=== PATIENT | male | born 1955 | race Caucasian/White ===

== ENCOUNTER 2017-09-30 10:03 | Inpatient (IN) | payer OTHER ==
[2017-09-30] MEDS ORDERED: Lidocaine 2% VISCOUS* 15 ML UDC ONE (10:50)
[2017-09-30] MEDS ORDERED: Naloxone* 0.4 MG/ML 1 ML VIAL ONE (10:50)
[2017-09-30] MEDS ORDERED: Flumazenil* 0.1 MG/ML 5 ML MDV ONE (10:50)
[2017-09-30] MEDS ORDERED: fentaNYL* 50 MCG/ML 2 ML VIAL (100 MCG VIAL) ONE (10:50)
[2017-09-30] MEDS ORDERED: Midazolam* 1 MG/ML 10 ML VIAL (10 MG) ONE (10:50)
[2017-09-30] MEDS ORDERED: Acetaminophen TAB* 325 MG PO PRN (14:35)
[2017-09-30] MEDS ORDERED: Nitroglycerin TAB 0.4 MG* 0.4 MG TAB SL PRN (14:37)
[2017-09-30] MEDS: Esmolol 10 MG/ML IVPREMIX* 2,500 MG/250 ML BAG IVPB SCH ×5 (15:46→22:53)
[2017-09-30] MEDS ORDERED: Metoprolol Tartrate TAB* 100 MG TAB PO ONE (16:19)
--- NOTE | 2017-09-30 17:11 | TEE ---
Patient: DANYEL TOWNSEND [facility] Rec#: [id number] : 1955 Date: 09/30/2017 Age: 62y Height: 182.88 cm / 72.0 in Weight: 108.86 kg / 239.9 lbs Sex: M BSA: 2.3 Room#: OP Type: Outpatient Referring: Dez Jason MD Performing: Dez Jason MD Reading: Dez Jason MD Log Washer: Britney AdamsMARISELA Nurse: Delfino Monterroso RN Transesophageal Echocardiogram Indication: A-flutter, CAD BP: 140/110 HR: 139 Rhythm: A-Flutter Findings History: SVT, CAD s/p CABG, a-fib, ischemic heart disease, HTN, MARISOL, CHF, former smoker. Technical Comments: The study quality is good. Left Ventricle: The left ventricular chamber size is normal. Severe global hypokinesis of the left ventricle is observed. There is severely decreased left ventricular systolic function. The estimated ejection fraction is 20-25%. The assessment of diastolic function is non-diagnostic. Left Atrium: The left atrium is moderately dilated. Spontaneous echo contrast is present in the left atrium appendage. The left atrial appendage velocity is mildly reduced. A thrombus is visualized in the left atrial appendage. Right Ventricle: The right ventricular cavity size is normal. The right ventricular global systolic function is mildly to moderately reduced. Right Atrium: The right atrium is mildly dilated. Interatrial septum appears intact without evidence of shunting. The bubble study is negative. A patent foramen ovale is not demonstrated with color Doppler and agitated contrast. Aortic Valve: The aortic valve is trileaflet. The aortic valve leaflets are mildly thickened. There is aortic annular calcification. There is a trace of aortic regurgitation. There is no evidence of aortic stenosis. Mitral Valve: The mitral valve leaflets are mildly thickened. There is a trace of mitral regurgitation. There is no evidence of mitral stenosis. Tricuspid Valve: The tricuspid valve leaflets are normal. There is trace to mild tricuspid regurgitation. There is no tricuspid stenosis. Pulmonic Valve: The pulmonic valve appears normal. There is no evidence of pulmonic regurgitation. There is no pulmonic stenosis. Pericardium: There is no significant pericardial effusion. Aorta: There is mild dilatation of the ascending aorta. There is moderate dilatation of the aortic root. There is plaque visualized in the transverse aorta. There is minimal atherosclerotic plaque in the visualized segments of the aorta. Pulmonary Artery: The main pulmonary artery appears normal. Venous: The bicaval view was obtained and appears normal. The pulmonary veins appear normal. 1 of 4 visualized. The pulmonary veins appear normal in size. BARI Procedures: All standard views were attempted within the limitations of patient tolerance and safety. History and physical as well as labs were reviewed. The patient was in a fasting state. Risks and benefits of the procedure, including alternatives, were discussed and written informed consent was obtained. The patient and/or their health care sales representative girls' apparel expressed understanding of the procedure, risks and benefits. Baseline and continuous monitoring of blood pressure, heart rate, pulse oximetry and heart rhythm was performed throughout the procedure. The appropriate time-out procedure was performed as per [facility] protocol. The patient was placed in the left lateral decubitus position. The patient's posterior pharynx was anesthetized with 20ml of 2% viscous lidocaine. The patient received IV Midazolam with a total dose of 6 mg. The patient received IV Fentanyl with a total dose of 50 mcg. An oral bite block was inserted for protection of oral dentition. The multiplane transesophageal echocardiogram probe was inserted through the posterior oropharynx and advanced into the esophagus without difficulty. Multiple 2D images were obtained of the heart and its related structures. Color flow Doppler was used for evaluation. Spectral Doppler was also used. The atrial septum was interrogated with color flow Doppler. At the conclusion of the procedure the probe was removed with continuous suction without complications. The patient tolerated the procedure with no apparent complications. Contrast: Normal saline was used as contrast for the bubble study. Image 33. Intravenous contrast was used to help determine presence of intracardiac shunting. Conclusions Severe global hypokinesis of the left ventricle is observed. There is severely decreased left ventricular systolic function. The estimated ejection fraction is 20-25%. Spontaneous echo contrast is present in the left atrium appendage. A thrombus is visualized in the left atrial appendage. The right ventricular global systolic function is mildly to moderately reduced. A patent foramen ovale is not demonstrated with color Doppler and agitated contrast. The aortic valve leaflets are mildly thickened. There is a trace of aortic regurgitation. There is a trace of mitral regurgitation. There is trace to mild tricuspid regurgitation. There is no significant pericardial effusion. Measurements Name Value Normal Range Aortic Annulus 2.3 cm (1.4 - 2.6) Ao root diameter (2D) 4.2 cm (2.1 - 3.5) Ascending Ao 3.9 cm (2.1 - 3.4) Name Value Normal Range MV E-wave Vmax 0.64 m/sec - MV deceleration time 190.1 msec -
[2017-09-30] MEDS: Digoxin TAB* 0.25 MG PO SCH (17:24)
[2017-09-30] MEDS: Apixaban* 5 MG TAB PO SCH (20:04)
[2017-09-30] MEDS ORDERED: Metoprolol Tartrate TAB* 100 MG TAB PO SCH (21:00)
--- NOTE | 2017-09-30 21:51 | HP ---
ADMISSION HISTORY AND PHYSICAL: DATE OF ADMISSION: 09/30/17 PRIMARY CARE PHYSICIAN: Dr. Villareal. SHIPYARD PAINTING SUPERVISOR: Dr. Jason. HEALTHCARE PROXY: His . CODE STATUS: Full. SOURCE OF INFORMATION: History obtained from interview with the patient and his , review of Dr. Jason's most recent outpatient cardiology followup from 09/23/17. CHIEF COMPLAINT: Atrial flutter, rapid ventricular response. HISTORY OF PRESENT ILLNESS: This is a 62-year-old man, who has history including CAD; atrial fibrillation; chronic ischemic heart disease; sleep apnea , not on CPAP; status post CABG in 2014, was seen by Dr. Villareal, noted to have fatigue and tachycardia, and referred to see Dr. Jason, who identified the same. He was noted have a narrow complex tachycardia up to 150 beats per minute , and was evaluated further at cardiology office. EKG at that point in August was consistent with atrial flutter with rapid ventricular response in spite of increased metoprolol by Dr. Villareal to 100 b.i.d. He was started on Eliquis b.i.d. with plan for a BARI cardioversion. He was seen today by Dr. Jason and during BARI, was noted to have thrombus and therefore did not undergo cardioversion. Final report from transesophageal echocardiogram is pending. Location of thrombus and size is not yet known by this author. He was seen by this author after the procedure. He was up and interactive, pleasant, in no distress. His heart rate was 138 beats per minute, was denying chest pain, shortness of breath, nausea, vomiting, lightheadedness, or palpitations. Again , he only reports fatigue and some palpitations at home since July. PAST MEDICAL HISTORY: Coronary arteriosclerosis; primary cardiomyopathy; atrial fibrillation; chronic ischemic heart disease; nocturnal dyspnea; sleep apnea, not on CPAP; atrial flutter; atrial fibrillation; history of CABG, 2014, at which time, he did undergo a maze procedure for his left atrium. MEDICATIONS: Include: 1. Aspirin 81 mg daily. 2. Atorvastatin 40 mg daily. 3. Metoprolol tartrate 100 mg twice daily. 4. Lisinopril 2.5 mg daily. 5. Loratadine 10 mg daily 6. Apixaban 5 mg twice daily. ALLERGIES: No known drug allergies. FAMILY HISTORY: Father with [place] in his late 50s and again in his early 60s and late 60s, ultimately bypassed and from complications of CHF. SOCIAL HISTORY: , lives with his . biochemistry specialist. Former smoker, quit 25 years prior, then smoked socially until 5 years prior. Drinks 5 to 7 glasses of beer or wine per week. Denies illicit's. Fairly active. 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 REVIEW OF SYSTEMS: As per HPI, otherwise all other systems negative. PHYSICAL EXAMINATION GENERAL: Sitting up in bed, interactive, pleasant in no apparent distress. VITAL SIGNS: When seen by this author 133/98, heart rate 138, respiratory rate 16. HEENT: Oropharynx is clear. He has dry mucous membranes. Sclerae anicteric. NECK: He has elevated JVD to the top of his ear. LUNGS: Clear except for rales in his left base that do not clear with coughing. HEART: Heart rate is tachycardic, irregular, and difficult to appreciate murmurs. ABDOMEN: His abdomen is soft, nontender, nondistended. EXTREMITIES: Warm and well perfused. He has 1+ lower extremity edema. He has psoriasis in his arms, more notable on bilateral lower extremities up to 6 inches below the ankle. NEURO: He has no apparent anxiety, agitation, or depression. LABORATORY DATA: Data reviewed: No current labs from this hospital stay. ASSESSMENT AND PLAN: This is a 62-year-old man with atrial fibrillation and atrial flutter; coronary artery disease, status post coronary artery bypass graft; new thrombus, most likely left atrial appendage, final report is pending. Admitted to hospitalist service for continued rate control in the setting of inability to perform cardioversion. 1. Thrombus. Continue Eliquis 5 mg twice daily. 2. Atrial flutter. Continue metoprolol 100 mg twice daily. Start esmolol drip with 500 mcg per kilogram bolus and 50 mcg per kilogram continuous. Eliquis as above. We will titrate other oral medications as needed. 3. Coronary artery disease. Continue aspirin and lisinopril as well as atorvastatin. 4. DVT prophylaxis. Eliquis as above. [id number]/[facility] #: [id number] MTDD
[2017-10-01] MEDS: Esmolol 10 MG/ML IVPREMIX* 2,500 MG/250 ML BAG IVPB SCH ×5 (01:11→12:41)
[2017-10-01] MEDS: Metoprolol Tartrate TAB* 100 MG TAB PO SCH ×2 (01:11→10:17)
[2017-10-01] MEDS: Atorvastatin* 40 MG TAB PO SCH (08:32)
[2017-10-01] MEDS: Aspirin Low Dose CHEW TAB* 81 MG PO SCH (08:32)
[2017-10-01] MEDS: Apixaban* 5 MG TAB PO SCH ×2 (08:32→21:24)
[2017-10-01] MEDS: Cetirizine* 10 MG TAB PO SCH (08:32)
[2017-10-01] MEDS ORDERED: Lisinopril TAB* 5 MG PO SCH (09:00)
[2017-10-01] MEDS ORDERED: Apixaban* 5 MG TAB PO SCH (09:00)
[2017-10-01] MEDS ORDERED: Digoxin Immune Fab* 40 MG VIAL IV ONE (09:43)
--- NOTE | 2017-10-01 09:57 | PN ---
Subjective Date of Service: 10/01/17 - CC: fatigue, racing heart Interval History: Pt feels fatigued, starting to feel some orthopnea. No chest pain. Medications Active Medications: Acetaminophen (Tylenol Tab*) 650 mg PO Q4H PRN PRN Reason: FEVER/PAIN Apixaban (Eliquis*) 5 mg PO BID [facility] Last Admin: 10/01/17 08:32 Dose: 5 mg Aspirin (Aspirin Low Dose Tab*) 81 mg PO DAILY [facility] Last Admin: 10/01/17 08:32 Dose: 81 mg Atorvastatin Calcium (Lipitor*) 40 mg PO DAILY [facility] Last Admin: 10/01/17 08:32 Dose: 40 mg Cetirizine HCl (Zyrtec*) 10 mg PO DAILY [facility] Last Admin: 10/01/17 08:32 Dose: 10 mg Digoxin (Lanoxin Tab*) 0.25 mg PO 1700 [facility] Last Admin: 09/30/17 17:24 Dose: 0.25 mg Digoxin Immune TINY (Digifab*) 1 mg IV ONCE ONE Stop: 10/01/17 09:44 Esmolol HCl (Brevibloc 10 Mg/Ml Ivpremix*) 2,500 mg in 250 mls @ 33.54 mls/hr IVPB .PER PARAMETERS JENIFER; 50 MCG/KG/MIN PRN Reason: Protocol Last Admin: 10/01/17 09:31 Dose: 200 mls/hr Lisinopril (Prinivil Tab*) 2.5 mg PO DAILY [facility] Last Admin: 10/01/17 08:32 Dose: 2.5 mg Metoprolol Tartrate (Lopressor Tab*) 100 mg PO Q8H [facility] Last Admin: 10/01/17 01:11 Dose: 100 mg Nitroglycerin (Nitroglycerin Tab 0.4 Mg*) 0.4 mg SL Q5M PRN PRN Reason: ANGINA Verapamil HCl (Calan Tab*) 80 mg PO TID [facility] Objective Vital Signs: Temp Pulse Resp BP Pulse Ox 97.6 F 133 19 158/113 95 10/01/17 09:00 10/01/17 08:00 10/01/17 08:00 10/01/17 08:00 10/01/17 08:00 Oxygen Devices in Use Now: None Appearance: Mildly centripitally obese, lying 45 degrees, comfortable. Eyes: No Scleral Icterus, PERRLA Ears/Nose/Mouth/Throat: Clear Oropharnyx, Mucous Membranes Moist Neck: NL Appearance and Movements; NL JVP, Trachea Midline, No Thyroid Enlargement, Masses Respiratory: Symmetrical Chest Expansion and Respiratory Effort, Clear to Auscultation Cardiovascular: RRR - tachycardic Abdominal: No Hepatosplenomegaly Extremities: - - trace to mild edema. Skin: No Rash or Ulcers Neurological: Alert and Oriented x 3, NL Muscle Strength and Tone Lines/Tubes/Other Access: Clean, Dry and Intact Peripheral IV Laboratory Results: TSH 0.94 mcIU/mL (0.34-5.60) 09/30/17 19:54 Diagnostic Imaging: BARI 09/30/17 (Dr. Jason): EF 20%, clot in the left atrial appendage. EKG Data: Monitor: probable atypical flutter, occasional PVC's, rate 130 bpm Assessment/Plan 62 yo male with CAD, CABG, MAZE procedure with CABG who has longstanding hx fluttering that he had been able to "control". In July he noted fluttering after alcohol, persisted and after some weeks he checked with his MD neighbor who noted his pulse was 140 bpm, the patient is not aware of the rapid rate. Pt in A. flutter, likely for weeks, severe CM appear related to rate and unable to CV due clot in the CHRISTIN. A. flutter: Continue anticoagulation indefinitely Trial of IV dig load. Trial of verapaimil even with low EF. Beta richardson: on esmalol gtt, in future can try and convert either back to metoprolol or to Coreg. CM: As above, increase lisinpril as well. Updating labs.
[2017-10-01] MEDS ORDERED: Verapamil TAB* 80 MG PO SCH (10:00)
[2017-10-01] MEDS ORDERED: Digoxin IV* 0.5 MG/2 ML AMP (0.25 MG/ML) IV SLOW PU ONE (10:01)
[2017-10-01 10:28] LABS: Hematocrit 43 % (42-52); Hemoglobin 14.4 g/dl (14.0-18.0); Mean Corpuscular HGB Conc 34 g/dl (31-36); Mean Corpuscular Hemoglobin 31 pg (27-31); Mean Corpuscular Volume 93 fL (80-94); Mean Platelet Volume 9 um3 (7.4-10.4); Platelet Count 163 10^3/ul (150-450); Red Blood Count 4.62 10^6/ul (4.0-5.4); Red Cell Distribution Width 14 % (10.5-15); White Blood Count 9.8 10^3/ul (3.5-10.8)
[2017-10-01 10:46] LABS: EGFR Non-African American 79.1 (>60)
[2017-10-01] MEDS: Carvedilol TAB* 25 MG PO SCH ×3 (13:24→21:24)
--- NOTE | 2017-10-01 15:41 | PN ---
Subjective Date of Service: 10/01/17 Interval History: Seen with at bedside. IV was temporarily not running and HR increased to 130s. Notes increased work of breathing with rapid HR but not "Shortness of breath." IV restarted and HR better controlled Eating lunch Denies CP, No other complaints Objective Active Medications: Acetaminophen (Tylenol Tab*) 650 mg PO Q4H PRN PRN Reason: FEVER/PAIN Apixaban (Eliquis*) 5 mg PO BID [facility] Last Admin: 10/01/17 08:32 Dose: 5 mg Aspirin (Aspirin Low Dose Tab*) 81 mg PO DAILY [facility] Last Admin: 10/01/17 08:32 Dose: 81 mg Atorvastatin Calcium (Lipitor*) 40 mg PO DAILY [facility] Last Admin: 10/01/17 08:32 Dose: 40 mg Carvedilol (Coreg Tab*) 12.5 mg PO QID [facility] Last Admin: 10/01/17 13:24 Dose: 12.5 mg Cetirizine HCl (Zyrtec*) 10 mg PO DAILY [facility] Last Admin: 10/01/17 08:32 Dose: 10 mg Digoxin (Lanoxin Tab*) 0.25 mg PO 1700 [facility] Last Admin: 09/30/17 17:24 Dose: 0.25 mg Esmolol HCl (Brevibloc 10 Mg/Ml Ivpremix*) 2,500 mg in 250 mls @ 33.54 mls/hr IVPB .PER PARAMETERS [facility]; 50 MCG/KG/MIN PRN Reason: Protocol Last Admin: 10/01/17 12:41 Dose: 99.9 mls/hr Lisinopril (Prinivil Tab*) 5 mg PO DAILY [facility] Metoprolol Tartrate (Lopressor Tab*) 100 mg PO Q8H [facility] Last Admin: 10/01/17 10:17 Dose: Not Given Nitroglycerin (Nitroglycerin Tab 0.4 Mg*) 0.4 mg SL Q5M PRN PRN Reason: ANGINA Vital Signs - 8 hr 10/01/17 10/01/17 10/01/17 08:00 08:30 09:00 Temperature 97.6 F Pulse Rate 133 133 132 Respiratory 17 17 20 Rate Blood Pressure 158/113 152/119 125/99 (mmHg) O2 Sat by Pulse 95 95 96 Oximetry 10/01/17 10/01/17 10/01/17 09:04 09:30 10:00 Temperature Pulse Rate 132 132 132 Respiratory 21 23 21 Rate Blood Pressure 141/108 138/101 139/99 (mmHg) O2 Sat by Pulse 95 92 94 Oximetry 10/01/17 10/01/17 10/01/17 10:30 10:33 10:45 Temperature Pulse Rate 132 133 133 Respiratory 20 22 Rate Blood Pressure 129/97 131/95 (mmHg) O2 Sat by Pulse 93 96 Oximetry 10/01/17 10/01/17 10/01/17 11:00 11:01 11:16 Temperature Pulse Rate 99 99 208 Respiratory 23 22 16 Rate Blood Pressure 129/99 132/91 (mmHg) O2 Sat by Pulse 95 95 95 Oximetry 10/01/17 10/01/17 10/01/17 11:45 12:00 12:01 Temperature 98.1 F Pulse Rate 93 91 95 Respiratory 25 20 22 Rate Blood Pressure 136/66 144/71 (mmHg) O2 Sat by Pulse 97 96 96 Oximetry 10/01/17 10/01/17 10/01/17 12:30 13:00 13:31 Temperature Pulse Rate 95 99 117 Respiratory 20 25 24 Rate Blood Pressure 140/77 159/77 (mmHg) O2 Sat by Pulse 97 99 96 Oximetry 10/01/17 10/01/17 10/01/17 14:00 14:01 14:31 Temperature Pulse Rate 91 94 45 Respiratory 24 19 18 Rate Blood Pressure 152/74 152/86 (mmHg) O2 Sat by Pulse 99 96 97 Oximetry Oxygen Devices in Use Now: None Appearance: sitting up, NAD Eyes: No Scleral Icterus, PERRLA Ears/Nose/Mouth/Throat: Clear Oropharnyx, Mucous Membranes Moist Neck: NL Appearance and Movements; NL JVP, Trachea Midline Respiratory: Symmetrical Chest Expansion and Respiratory Effort, Clear to Auscultation Cardiovascular: - - rapid, regular Abdominal: NL Sounds; No Tenderness; No Distention, No Hepatosplenomegaly Lymphatic: No Cervical Adenopathy Extremities: - - 1+ LE edema Neurological: Alert and Oriented x 3 Result Diagrams: 10/01/17 10:14 10/01/17 10:14 Microbiology and Other Data: Microbiology 09/30/17 16:57 Nasal Screen MRSA (PCR)(DEE) - Final Nasal Mrsa Not Detected Assess/Plan/Problems-Billing Assessment: 62 yo M h/o CAD s/p CABG w/MAZE, aflutter s/p BARI 09/30 found with thrombus in CHRISTIN admitted for difficult to control aflutter - Patient Problems (1) Thrombus of left atrial appendage Comment: Eliquis BID (2) Atrial flutter Comment: h/o left atrial MAZE continue on esmolol gtt metorpolol 100 TID cardizem and dixogin started Suspect will need uptitration of cardiezem appreciate cardiology assistance (3) CAD (coronary artery disease) Comment: ASA, statin, beta richardson, ACEi (4) Cardiomyopathy Comment: Beta richardson, ACEi, ASA rate control as above EF 20% (5) DVT prophylaxis Comment: jatinder
[2017-10-01] MEDS: Digoxin TAB* 0.25 MG PO SCH (17:08)
[2017-10-01] MEDS: Metoprolol Tartrate TAB* 50 mg PO SCH ×2 (18:49→23:56)
[2017-10-01] MEDS: Saline NASAL SPRAY 0.65%* BTL BOTH NARES PRN (23:29)
[2017-10-02] MEDS: Saline NASAL SPRAY 0.65%* BTL BOTH NARES PRN ×2 (03:47→23:32)
[2017-10-02] MEDS: Metoprolol Tartrate TAB* 50 mg PO SCH ×4 (06:17→23:34)
[2017-10-02] MEDS: Aspirin Low Dose CHEW TAB* 81 MG PO SCH (09:19)
[2017-10-02] MEDS: Atorvastatin* 40 MG TAB PO SCH (09:19)
[2017-10-02] MEDS: Cetirizine* 10 MG TAB PO SCH (09:19)
[2017-10-02] MEDS: Carvedilol TAB* 25 MG PO SCH ×4 (09:19→21:27)
[2017-10-02] MEDS: Apixaban* 5 MG TAB PO SCH ×2 (09:20→21:28)
--- NOTE | 2017-10-02 18:09 | PN ---
Subjective Date of Service: 10/02/17 Interval History: rate controlled. No SOB, CP Anxious to leave hospital Objective Active Medications: Acetaminophen (Tylenol Tab*) 650 mg PO Q4H PRN PRN Reason: FEVER/PAIN Apixaban (Eliquis*) 5 mg PO BID [facility] Last Admin: 10/02/17 09:20 Dose: 5 mg Aspirin (Aspirin Low Dose Tab*) 81 mg PO DAILY [facility] Last Admin: 10/02/17 09:19 Dose: 81 mg Atorvastatin Calcium (Lipitor*) 40 mg PO DAILY [facility] Last Admin: 10/02/17 09:19 Dose: 40 mg Carvedilol (Coreg Tab*) 12.5 mg PO QID [facility] Last Admin: 10/02/17 13:03 Dose: 12.5 mg Cetirizine HCl (Zyrtec*) 10 mg PO DAILY [facility] Last Admin: 10/02/17 09:19 Dose: 10 mg Digoxin (Lanoxin Tab*) 0.25 mg PO 1700 [facility] Last Admin: 10/01/17 17:08 Dose: 0.25 mg Esmolol HCl (Brevibloc 10 Mg/Ml Ivpremix*) 2,500 mg in 250 mls @ 33.54 mls/hr IVPB .PER PARAMETERS [facility]; 50 MCG/KG/MIN PRN Reason: Protocol Last Admin: 10/01/17 12:41 Dose: 99.9 mls/hr Lisinopril (Prinivil Tab*) 5 mg PO DAILY [facility] Metoprolol Tartrate (Lopressor Tab*) 50 mg PO Q6H [facility] Last Admin: 10/02/17 12:17 Dose: 50 mg Nitroglycerin (Nitroglycerin Tab 0.4 Mg*) 0.4 mg SL Q5M PRN PRN Reason: ANGINA Sodium Chloride (Sodium Chloride 0.65% Nasal Alloy*) 1 spray BOTH NARES Q4H PRN PRN Reason: CONGESTION Last Admin: 10/02/17 03:47 Dose: 1 nasal.spr Vital Signs - 8 hr 10/02/17 10/02/17 10/02/17 11:00 12:00 12:05 Temperature 98.5 F Pulse Rate 71 70 71 Respiratory 19 16 16 Rate Blood Pressure 132/82 (mmHg) O2 Sat by Pulse 95 95 96 Oximetry 10/02/17 10/02/17 10/02/17 13:00 14:00 15:00 Temperature Pulse Rate 71 71 71 Respiratory 20 20 21 Rate Blood Pressure 144/87 148/91 154/103 (mmHg) O2 Sat by Pulse 97 97 98 Oximetry 10/02/17 10/02/17 10/02/17 15:50 15:58 16:00 Temperature 98.4 F Pulse Rate Respiratory 20 15 Rate Blood Pressure (mmHg) O2 Sat by Pulse Oximetry Oxygen Devices in Use Now: None Appearance: NAD Eyes: No Scleral Icterus, PERRLA Ears/Nose/Mouth/Throat: Clear Oropharnyx, Mucous Membranes Moist Neck: NL Appearance and Movements; NL JVP, Trachea Midline Respiratory: Symmetrical Chest Expansion and Respiratory Effort, Clear to Auscultation Cardiovascular: RRR Abdominal: NL Sounds; No Tenderness; No Distention, No Hepatosplenomegaly Lymphatic: No Cervical Adenopathy Extremities: - - 1+ LE edema Neurological: Alert and Oriented x 3 Result Diagrams: 10/01/17 10:14 10/01/17 10:14 Microbiology and Other Data: Microbiology 09/30/17 16:57 Nasal Screen MRSA (PCR)(DEE) - Final Nasal Mrsa Not Detected Assess/Plan/Problems-Billing Assessment: 62 yo M h/o CAD s/p CABG w/MAZE, aflutter s/p BARI 09/30 found with thrombus in [place]RIST[place] admitted for difficult to control aflutter - Patient Problems (1) Thrombus of left atrial appendage Comment: Eliquis BID with plan for repeat BARI and cardioversion with Dr. Jason as outpatient (2) Atrial flutter Comment: h/o left atrial MAZE metorpolol 50 qid cardizem and dixogin started eliquis (3) CAD (coronary artery disease) Comment: ASA, statin, beta richardson, ACEi (4) Cardiomyopathy Comment: Beta richardson, ACEi, ASA rate control as above EF 20% Needs life vest on discharge or at least confirmed that will be available on discharge. Insurance approval still pending today which is delaying discharge. Requires additional monitoring (5) DVT prophylaxis Comment: jatinder
[2017-10-02] MEDS: Digoxin TAB* 0.25 MG PO SCH (18:27)
[2017-10-02] MEDS: Lisinopril TAB* 5 MG PO SCH (21:28)
[2017-10-02] MEDS: hydrALAZINE IV* 20 MG/ML VIAL IV SLOW PU PRN (22:19)
[2017-10-03] MEDS: Metoprolol Tartrate TAB* 50 mg PO SCH ×2 (06:51→13:15)
[2017-10-03] MEDS: hydrALAZINE IV* 20 MG/ML VIAL IV SLOW PU PRN (08:00)
[2017-10-03] MEDS: Aspirin Low Dose CHEW TAB* 81 MG PO SCH (08:14)
[2017-10-03] MEDS: Atorvastatin* 40 MG TAB PO SCH (08:14)
[2017-10-03] MEDS: Carvedilol TAB* 25 MG PO SCH (08:14)
[2017-10-03] MEDS: Apixaban* 5 MG TAB PO SCH (08:14)
[2017-10-03] MEDS: Cetirizine* 10 MG TAB PO SCH (08:14)
[2017-10-03] MEDS: Lisinopril TAB* 5 MG PO SCH (08:21)
[2017-10-03] MEDS ORDERED: Carvedilol TAB* 25 MG PO ONE (11:00)
[2017-10-03 12:30] VITALS: BP 161/78
[2017-10-03] MEDS ORDERED: Carvedilol TAB* 6.25 MG PO SCH (13:00)
--- NOTE | 2017-10-04 01:18 | DS ---
CC: Dr. Villareal; Dr. Jason * DISCHARGE SUMMARY: DATE OF ADMISSION: 09/30/17 DATE OF DISCHARGE: 10/03/17 PRIMARY CARE PROVIDER: Dr. Villareal. PRIMARY DIAGNOSES: 1. Atrial flutter with rapid ventricular response. 2. Left atrial appendage thrombus. SECONDARY DIAGNOSES: Include: 1. Systolic heart failure, chronic compensated left ventricular systolic ejection fraction 20% to 25%. 2. History of coronary artery disease. 3. Cardiomyopathy as indicated above with ejection fraction 20%. MEDICATIONS ON DISCHARGE: Include: 1. Loratadine 10 mg daily. 2. Aspirin 81 mg daily. 3. Atorvastatin 40 mg daily. 4. Metoprolol succinate 100 mg daily. 5. Lisinopril 5 mg daily. 6. Digoxin 0.25 mg in the evening. 7. Carvedilol 18.25 mg 4 times a day. 8. Eliquis 5 mg twice daily. 9. Acetaminophen 650 mg every 4 hours as needed for pain or fever. HISTORY OF PRESENT ILLNESS AND HOSPITAL COURSE: This is a 62-year-old man, known atrial flutter, who presented to the hospital for elective BARI and cardioversion under the direction of Dr. Jason and was discovered with left atrial appendage thrombus on 09/30/17 during the BARI, after which heart rate remained rapid and uncontrolled, approximating 150 beats per minute. He was admitted to the ICU for further management and started on esmolol drip in addition to metoprolol, which were unsuccessful in controlling the patient's heart rate. Carvedilol was added and titrated up in conjunction with initiation of digoxin, which ultimately achieved adequate response. Of note, the patient was on 300 mg metoprolol and maxed out on esmolol drip 300 mcg per minute with heart rates remaining in the 130 beats per minute. Carvedilol and digoxin improvement. Because of his history of CAD, depressed EF, and now EF of 20%, the patient to be discharged with a LifeVest/external cardiac defibrillator, which was performed prior to his discharge. He was also discharged on Eliquis. There are no other complications during the patient's course of this hospital stay. Of note, for further reference, the patient has had a history of CAD with CABG and a maze procedure at that time. FOLLOWUP INSTRUCTIONS: At followup, please: 1. Evaluate for continued heart rate control, adjust medications as necessary. Potentially capitalize carvedilol to longer acting or twice daily dosing. 2. No other specific labs or vitals that need followup. Reasons to return to the hospital including, but not limited to recurrent or worsening symptoms including chest pain, shortness of breath, nausea, vomiting, lightheadedness, palpitations, loss of consciousness, near loss of conscious, fevers, chills, night sweats, bleeding from any source, inability to obtain or tolerate medications were discussed with the patient and his . They acknowledged understanding. TIME SPENT: Greater than 60 minutes was spent in the discharge of this patient with greater than half spent [id number] with the patient. [id number]/[facility] #: [id number] RUFINO
== END 2017-10-03 13:15 | disposition home or self-care (01) | DRG 309 ==
LOC: CHICATH 10:03 → ICU 15:13 → OBSVTOIN 10-01 15:42
PROVIDERS: ADMIT Internal Medicine; ATTEND Internal Medicine
PROC: 5A2204Z Restoration of Cardiac Rhythm, Single (ICD-10-PCS; principal; 2017-10-01)
PROC: B24BZZ4 Ultrasonography of Heart with Aorta, Transesophageal (ICD-10-PCS; 2017-10-01)
DX: I48.92 Unspecified atrial flutter (principal); I50.22 Chronic systolic (congestive) heart failure; I47.2 Ventricular tachycardia; I42.9 Cardiomyopathy, unspecified; I11.0 Hypertensive heart disease with heart failure; I51.3 Intracardiac thrombosis, not elsewhere classified; I48.91 Unspecified atrial fibrillation; I25.9 Chronic ischemic heart disease, unspecified; E66.9 Obesity, unspecified; I25.10 Atherosclerotic heart disease of native coronary artery without angina pectoris; L40.9 Psoriasis, unspecified; G47.30 Sleep apnea, unspecified; Z86.010 Personal history of colon polyps; Z95.5 Presence of coronary angioplasty implant and graft; Z87.891 Personal history of nicotine dependence; Z72.89 Other problems related to lifestyle; Z79.82 Long term (current) use of aspirin; Z79.01 Long term (current) use of anticoagulants; Z95.1 Presence of aortocoronary bypass graft; Z82.49 Family history of ischemic heart disease and other diseases of the circulatory system; Z68.33 Body mass index [BMI] 33.0-33.9, adult
CPT/HCPCS: 36415; 80053; 84443; 85027; 87641; 93312; 93325; 94762; 99156; A9270-GY; G0378; J0360; J1160; J2250; J2310; J3010

== ENCOUNTER 2018-01-19 08:52 | Inpatient (IN) | payer OTHER ==
[2018-01-19] MEDS ORDERED: Acetaminophen TAB* 325 MG PO PRN (13:39)
[2018-01-19 13:58] LABS: Hematocrit 44 % (42-52); Hemoglobin 15.3 g/dl (14.0-18.0); Mean Corpuscular HGB Conc 35 g/dl (31-36); Mean Corpuscular Hemoglobin 32 pg (27-31); Mean Corpuscular Volume 92 fL (80-94); Mean Platelet Volume 8.8 um3 (7.4-10.4); Platelet Count 179 10^3/ul (150-450); Red Blood Count 4.82 10^6/ul (4.00-5.40); Red Cell Distribution Width 15 % (10.5-15); White Blood Count 9.9 10^3/ul (3.5-10.8)
[2018-01-19 14:15] LABS: EGFR Non-African American 81.1 (>60)
[2018-01-19] MEDS ORDERED: Hydrocortisone 1% CREAM* 30 GM TUBE TOPICAL PRN (15:21)
[2018-01-19] MEDS: Saline FLUSH-PERIPHERAL* 10 ML SYRINGE PERIPH SCH ×2 (16:11→21:15)
[2018-01-19] MEDS: Carvedilol TAB* 6.25 MG PO SCH (20:46)
[2018-01-19] MEDS: Apixaban* 5 MG TAB PO SCH (20:46)
[2018-01-19] MEDS: Atorvastatin* 40 MG TAB PO SCH (20:46)
[2018-01-19] MEDS ORDERED: Dofetilide CAP* 500 MCG PO SCH (21:00)
[2018-01-19] MEDS: Dofetilide CAP* 250 MCG PO SCH (21:08)
[2018-01-20] MEDS ORDERED: Metoprolol Tartrate IV* 1 MG/ML 5 ML VIAL IV ONE (04:00)
[2018-01-20 06:06] LABS: EGFR Non-African American 84.1 (>60)
[2018-01-20] MEDS: Saline FLUSH-PERIPHERAL* 10 ML SYRINGE PERIPH SCH ×3 (07:20→21:40)
[2018-01-20] MEDS: Lisinopril TAB* 10 MG PO SCH (08:31)
[2018-01-20] MEDS: Apixaban* 5 MG TAB PO SCH ×2 (08:31→21:31)
[2018-01-20] MEDS: Dofetilide CAP* 250 MCG PO SCH ×2 (08:31→21:10)
[2018-01-20] MEDS: Carvedilol TAB* 6.25 MG PO SCH ×2 (08:31→21:10)
[2018-01-20] MEDS: Aspirin 81 mg CHEW TAB* 81 MG TAB.CHEW PO SCH (08:31)
[2018-01-20] MEDS: Atorvastatin* 40 MG TAB PO SCH (21:10)
[2018-01-21 06:23] LABS: EGFR Non-African American 84.1 (>60)
[2018-01-21] MEDS: Saline FLUSH-PERIPHERAL* 10 ML SYRINGE PERIPH SCH ×3 (07:23→21:34)
[2018-01-21] MEDS ORDERED: Triamcinolone 0.5% OINT * 15 GM TUBE TOPICAL SCH (09:00)
[2018-01-21] MEDS: Dofetilide CAP* 250 MCG PO SCH ×2 (09:01→19:55)
[2018-01-21] MEDS: Carvedilol TAB* 6.25 MG PO SCH ×2 (09:01→19:50)
[2018-01-21] MEDS: Apixaban* 5 MG TAB PO SCH ×2 (09:01→19:50)
[2018-01-21] MEDS: Aspirin 81 mg CHEW TAB* 81 MG TAB.CHEW PO SCH (09:02)
[2018-01-21] MEDS: Lisinopril TAB* 10 MG PO SCH (09:02)
[2018-01-21] MEDS ORDERED: Adenosine* 3 MG/ML VIAL ONE (17:35)
[2018-01-21] MEDS ORDERED: Potassium Chlor TAB* 10 MEQ TAB.ER PO ONE (18:09)
[2018-01-21] MEDS ORDERED: Lisinopril TAB* 5 MG PO ONE (18:17)
[2018-01-21] MEDS ORDERED: Adenosine* 3 MG/ML VIAL IV PUSH ONE (18:19)
--- NOTE | 2018-01-21 18:29 | PN ---
Subjective Date of Service: 01/21/18 - CC: fluttering Interval History: The patient was seen twice, once mid day, again now. The patient was feeling great earlier in the day, no c/0. Developed his typical fluttering sensation about 5:20 PM, telemetry showed regular tachycardia. 12 lead obtained. At bedside the patient denied any new pain or SOB. No orthopnea or PND. Medications Active Medications: Acetaminophen (Tylenol Tab*) 650 mg PO Q6H PRN PRN Reason: PAIN Adenosine (Adenocard*) 6 mg IV PUSH ONCE ONE Stop: 01/21/18 18:20 Apixaban (Eliquis*) 5 mg PO BID [facility] Last Admin: 01/21/18 09:01 Dose: 5 mg Aspirin (Aspirin 81 Mg Chew Tab*) 81 mg PO 0900 [facility] Last Admin: 01/21/18 09:02 Dose: 81 mg Atorvastatin Calcium (Lipitor*) 40 mg PO 2100 [facility] Last Admin: 01/20/18 21:10 Dose: 40 mg Carvedilol (Coreg Tab*) 6.25 mg PO BID [facility] Last Admin: 01/21/18 09:01 Dose: 6.25 mg Dofetilide (Tikosyn Cap*) 250 mcg PO BID [facility] Last Admin: 01/21/18 09:01 Dose: 250 mcg Hydrocortisone (Hytone Cream 1%*) 1 applic TOPICAL DAILY PRN PRN Reason: RASH Lisinopril (Prinivil Tab*) 5 mg PO ONCE ONE Stop: 01/21/18 18:18 Lisinopril (Prinivil Tab*) 20 mg PO 0900 [facility] Potassium Chloride (Klor Con Er Tab*) 40 meq PO ONCE ONE Stop: 01/21/18 18:10 Sodium Chloride ( Peripheral Saline Flush*) 10 ml PERIPH Q8H [facility] Last Admin: 01/21/18 13:54 Dose: 10 ml Triamcinolone Acetonide (Triamcinolone 0.5% Oint *) 1 applic TOPICAL Q48H [facility] Last Admin: 01/21/18 09:02 Dose: Not Given Objective Vital Signs: Temp Pulse Resp BP Pulse Ox 98.3 F 65 16 133/70 97 01/21/18 15:05 01/21/18 15:05 01/21/18 15:05 01/21/18 15:05 01/21/18 15:05 Vital Signs 01/20/18 01/20/18 01/20/18 20:00 20:11 22:35 Temperature 98.4 F Pulse Rate 66 70 Respiratory 16 16 20 Rate Blood Pressure 171/93 160/96 (mmHg) O2 Sat by Pulse 100 98 Oximetry 01/21/18 01/21/18 01/21/18 07:25 08:00 10:45 Temperature 98.2 F Pulse Rate 71 71 Respiratory 16 18 Rate Blood Pressure 172/94 166/95 (mmHg) O2 Sat by Pulse 98 Oximetry 01/21/18 01/21/18 11:17 15:05 Temperature 98.2 F 98.3 F Pulse Rate 57 65 Respiratory 16 16 Rate Blood Pressure 144/77 133/70 (mmHg) O2 Sat by Pulse 99 97 Oximetry Oxygen Devices in Use Now: None Appearance: Overweight somewhat older gentleman in no acute distress. Eyes: No Scleral Icterus, PERRLA Ears/Nose/Mouth/Throat: Clear Oropharnyx, Mucous Membranes Moist Neck: NL Appearance and Movements; NL JVP, Trachea Midline, No Thyroid Enlargement, Masses Respiratory: Symmetrical Chest Expansion and Respiratory Effort, Clear to Auscultation Cardiovascular: NL Sounds; No Murmurs; No JVD, RRR - tachycardic currently Abdominal: - - rotund, active bowel sounds and non tender. Extremities: No Edema Skin: No Rash or Ulcers Neurological: Alert and Oriented x 3, NL Gait, NL Muscle Strength and Tone Lines/Tubes/Other Access: Clean, Dry and Intact Peripheral IV Laboratory Results: 01/19/18 13:49 01/21/18 05:39 Diagnostic Imaging: Echo Dr Jason 11/24/17: EF 35-40% EKG Data: ECG this AM: NSR, PVC, QTc 469 ECG 5:12 PM: SVT 143 bpm, mild lateral ST depression, probable flutter waves. Adenocard: confirmed atypical flutter, but did not break rhythm. Assessment/Plan 62 yo with history of atrial flutter, s/p ablation 11/27/17 (Dr Malvin Lobato) admitted for Tikosyn loading for post ablation flutter. The patient has an additional cardiac history of CAD with stents, elevated LVEDP , HTN, cardiomyopathy, dyslipidemia. Atypical flutter: He has had 4 doses to date, not quite at steady state, continue loading. Continue Eliquis. KCl 40 meq now, see if this helps CV, if it doesn't I can give Tikosyn a bit early, elec CV in AM PRN. The patient is concerned about upcoming work obligations, travel, meeting. I discussed options of staying on Tikosyn, if he fails this the need to wash out prior to trying amiodarone. He is aware of atypical flutter diagnosis and potential option of ablation again, he understands this can be more complex than Typical flutter ablation. HTN: BP quite high this AM, Coreg decreased on admission from 18.75 mg BID to 6.25 mg BID, I presume for bradycardia. I am increasing lisinopril to 20 mg/day for now. May need to increase Coreg in the future, HR on ECG this AM was 70 bpm. KCl: Plan to keep KCl levels approx 4.5, might help. BMI BMI 32, I did not discuss with the patient, optimization of lifestyle would be beneficial.
[2018-01-21] MEDS: Atorvastatin* 40 MG TAB PO SCH (19:50)
[2018-01-22 07:00] LABS: EGFR Non-African American 96.2 (>60)
[2018-01-22] MEDS: Saline FLUSH-PERIPHERAL* 10 ML SYRINGE PERIPH SCH (08:02)
[2018-01-22 08:05] VITALS: BP 170/98
[2018-01-22] MEDS: Aspirin 81 mg CHEW TAB* 81 MG TAB.CHEW PO SCH (08:30)
[2018-01-22] MEDS: Dofetilide CAP* 250 MCG PO SCH (08:30)
[2018-01-22] MEDS: Apixaban* 5 MG TAB PO SCH (08:30)
[2018-01-22] MEDS: Carvedilol TAB* 6.25 MG PO SCH (08:31)
[2018-01-22] MEDS ORDERED: Lisinopril TAB* 10 MG PO SCH (09:00)
[2018-01-22] MEDS ORDERED: Carvedilol TAB* 6.25 MG PO SCH (09:00)
== END 2018-01-22 10:00 | disposition home or self-care (01) | DRG 309 ==
LOC: MEDTELE 12:52
PROVIDERS: ADMIT Specialist; ATTEND Specialist
DX: I48.4 Atypical atrial flutter (principal); I25.110 Atherosclerotic heart disease of native coronary artery with unstable angina pectoris; I48.91 Unspecified atrial fibrillation; I11.0 Hypertensive heart disease with heart failure; I42.9 Cardiomyopathy, unspecified; E66.3 Overweight; L40.9 Psoriasis, unspecified; K63.5 Polyp of colon; G47.30 Sleep apnea, unspecified; I50.9 Heart failure, unspecified; I08.3 Combined rheumatic disorders of mitral, aortic and tricuspid valves; I49.3 Ventricular premature depolarization; E78.5 Hyperlipidemia, unspecified; I27.20 Pulmonary hypertension, unspecified; Z95.1 Presence of aortocoronary bypass graft; Z87.891 Personal history of nicotine dependence; Z72.89 Other problems related to lifestyle; Z95.5 Presence of coronary angioplasty implant and graft; Z68.32 Body mass index [BMI] 32.0-32.9, adult
CPT/HCPCS: 36415; 80048; 83735; 85027; 93005; A9270-GY; J0153; J3490

== ENCOUNTER 2018-03-05 12:20 | Emergency (ER) | payer OTHER ==
[2018-03-05] MEDS ORDERED: NS 0.9% 1000 ML* 1,000 ML IV ONE (12:38)
[2018-03-05] MEDS ORDERED: Diltiazem IV VIAL* 5 MG/ML 10 ML VIAL IV SLOW PU ONE (12:39)
[2018-03-05 12:53] LABS: ABS Basophils 0.1 10^3/ul (0-0.2); ABS Eosinophils 0.4 10^3/ul (0-0.6); ABS Lymphocytes 0.8 10^3/ul (1.0-4.8); ABS Monocytes 0.8 10^3/ul (0-0.8); ABS Neutrophils 8.2 10^3/ul (1.5-7.7); ABS Nucleated RBC 0 10^3/ul; Eosinophil % 3.4 % (0-6); Hematocrit 46 % (42-52); Hemoglobin 15.6 g/dl (14.0-18.0); Lymphocyte % 7.8 % (25-47); Mean Corpuscular HGB Conc 34 g/dl (31-36); Mean Corpuscular Hemoglobin 32 pg (27-31); Mean Corpuscular Volume 93 fL (80-94); Mean Platelet Volume 8.5 um3 (7.4-10.4); Nucleated Red Blood Cells % 0; Platelet Count 171 10^3/ul (150-450); Red Blood Count 4.89 10^6/ul (4.00-5.40); Red Cell Distribution Width 14 % (10.5-15); White Blood Count 10.2 10^3/ul (3.5-10.8)
[2018-03-05 13:02] LABS: INR 1.29 (0.77-1.02)
[2018-03-05] MEDS ORDERED: Diltiazem IV* 5 MG/ML 5 ML VIAL (for loading dose/IV Push) (25 MG) ONE (13:03)
--- NOTE | 2018-03-05 13:07 | RAD ---
Indication: Chest pain. Single frontal view of the chest performed at 1250 hours was reviewed. Comparison is made with previous exam dated March 26, 2013. Cardiomegaly. Patient is status post transsternal thoracotomy. Lung [place] appear clear. IMPRESSION: CARDIOMEGALY. PATIENT IS STATUS POST CHANGED STERNAL THORACOTOMY.
--- NOTE | 2018-03-05 13:08 | ED ---
Palpitations / Dysrhythmia - HPI Summary HPI Summary: This is scribe Juanjo Saenz documenting for attending Dr. Dion Pimentel This patient is a 62 year old M presenting to [facility] with a chief complaint of palpitations. Since 2200 last night, 03/04/18. I am in atrial flutter. He reports he has been having these sx since 2200 last night, and he thinks that the flutter had stopped at 0300, and then resumed at 0800. He usually has these sx for weeks at a time, but is taking Eliquis which seems to be ineffective at this point. Today he came to the ED because he wants to stop the sx. I want a quick shot to control the HR, and I want to be discharged immediately because I have a project to finish. He denies SOB, CP, N/V. I, Dr. Ashley personally performed the services described in this documentation as scribed in my presence and it is both accurate and complete. - History of Current Complaint Chief Complaint: EDDysrhythmPalp Time Seen by Provider: 03/05/18 12:28 Hx Obtained From: Patient Onset/Duration: Sudden Onset, Still Present, Worse Since - 0800 Timing: Intermittent Episodes Lasting: - hours, sometimes weeks Severity Initially: Mild Severity Currently: Mild Character: Fast, Fluttering Aggravating: Nothing Alleviating: Nothing Associated Signs & Symptoms: Negative Related History: Similar Episode/Dx as - Dx'd Atrial flutter - Allergy/Home Medications Allergies/Adverse Reactions: Allergies Allergy/AdvReac Type Severity Reaction Status Date / Time No Known Allergies Allergy Verified 03/05/18 12:25 Home Medications: Home Medications Aspirin 81 mg CHEW TAB* [Aspirin Low Dose TAB*] 81 mg PO QAM 03/05/18 [History Confirmed 03/05/18] Betamethasone Dipropionate [Betamethasone Dipropionat] 0.05 % TOPICAL Q48HR 04/14 [History Confirmed 03/05/18] Hydrocortisone 1% CREAM* [Hytone Cream 1%*] 1 applic TOPICAL DAILY PRN 03/05/18 [History Confirmed 03/05/18] LoraTADine TAB(NF) [Claritin 10 MG TAB(NF)] 10 mg PO QPM 03/05/18 [History Confirmed 03/05/18] Oxymetazoline 0.05% NASAL SPR* [Afrin 0.05% NASAL SPRAY*] 1 spray BOTH NARES QPM 03/05/18 [History Confirmed 03/05/18] PMH/Surg Hx/FS Hx/Imm Hx Endocrine/Hematology History: Reports: Hx Anticoagulant Therapy - eliquis Denies: Hx Blood Transfusions, Hx Anemia, Hx Unexplained Bleeding Cardiovascular History: Reports: Hx Congestive Heart Failure, Hx Coronary Artery Disease, Hx Hypercholesterolemia, Hx Hypertension, Other Cardiovascular Problems/Disorders - 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, MAZE procedure, atrial flutter Denies: Hx Aneurysm, Hx Angina, Hx Angioplasty, Hx Auto Implanted Cardiovert Defib, Hx Cardiac Arrest, Hx Cardiomegaly, Hx Congenital Heart Disease, Hx Deep Vein Thrombosis, Hx Embolism, Hx Hypotension, Hx Pacemaker/ICD, Hx Peripheral Vascular Disease, Hx Rheumatic Fever, Hx Syncope, Hx Valvular Heart Disease Respiratory History: Reports: Hx Seasonal Allergies, Hx Sleep Apnea Denies: Hx Asthma, Hx Chronic Bronchitis, Hx Chronic Obstructive Pulmonary Disease (COPD), Hx Cystic Fibrosis, Hx Lung Cancer, Hx Pleural Effusion, Hx Pneumonia, Hx Pulmonary Edema, Hx Pulmonary Embolism, Other Respiratory Problems /Disorders GI History: Reports: Hx Jaundice Denies: Hx Cirrhosis, Hx Crohn's Disease, Hx Diverticulosis, Hx Gall Bladder Disease, Hx Gastroesophageal Reflux Disease, Hx Gastrointestinal Bleed, Hx Hiatal Hernia, Hx Irritable Bowel, Hx Obstructive Bowel, Hx Ileostomy, Hx Pyloric Stenosis, Hx Ulcer, Other GI Disorders History: Denies: Hx Dialysis Musculoskeletal History: Reports: Hx Bursitis, Hx Orthopedic Injury - wrist fracture, Other Musculoskeletal History - ACL repair Denies: Hx Arthritis, Hx Back Problems, Hx Congenital Bone Abnormalities, Hx Fibromyalgia, Hx Gout, Hx Osteoporosis, Hx Scoliosis, Hx Tendonitis Sensory History: Reports: Hx Contacts or Glasses - pt. wearing contacts Denies: Hx Cataracts, Hx Eye Injury, Hx Eye Prosthesis, Hx Glaucoma, Hx Legally Blind, Hx Macular Degeneration, Hx Vision Problem, Hx Deafness, Hx Hearing Aid, Hx Hearing Problem, Other Sensory Impairments Opthamlomology History: Reports: Hx Contacts or Glasses - pt. wearing contacts Denies: Hx Cataracts, Hx Eye Injury, Hx Eye Prosthesis, Hx Glaucoma, Hx Legally Blind, Hx Macular Degeneration, Hx Vision Problem, Other Sensory Impairments EENT History: Denies: Hx Deafness, Hx Hearing Problem, Hx Hearing Aid Neurological History: Denies: Hx Seizures, Hx Spinal Cord Injury, Hx Transient Ischemic Attacks ( TIA) Psychiatric History: Denies: Hx Schizophrenia - Surgical History Surgery Procedure, Year, and Place: arthrocopic knee surgery 1989. CABG 2015. Saphenous vein graph OM1. ACL reair Hx Anesthesia Reactions: No Infectious Disease History: No Infectious Disease History: Reports: Hx Hepatitis - 35 yrs ago Denies: Hx Human Immunodeficiency Virus (HIV), Hx of Known/Suspected MRSA, Hx Shingles, Hx Tuberculosis, Hx Known/Suspected VRE, Hx Known/Suspected VRSA, History Other Infectious Disease, Traveled Outside the [place] in Last 30 Days - Family History Known Family History: Positive: Cardiac Disease - Social History Occupation: Employed Full-time Lives: With Family Alcohol Use: Occasionally Alcohol Amount: 1 glass per day Substance Use Type: Reports: None Smoking Status (MU): Former Smoker Type: Cigarettes Review of Systems Negative: Fever Positive: Palpitations - fast, flutter. Negative: Chest Pain Negative: Shortness Of Breath Negative: Vomiting, Nausea Positive: Rash All Other Systems Reviewed And Are Negative: Yes Physical Exam - Summary Physical Exam Summary: VITAL SIGNS: Reviewed. GENERAL: Patient is a well-developed and nourished male who is lying comfortable in the stretcher. Patient is not in any acute respiratory distress. HEAD AND FACE: No signs of trauma. No ecchymosis, hematomas or skull depressions. No sinus tenderness. EYES: PERRLA, EOMI x 2, No injected conjunctiva, no nystagmus. EARS: Hearing grossly intact. Ear canals and tympanic membranes are within normal limits. MOUTH: Oropharynx within normal limits. NECK: Supple, trachea is midline, no adenopathy, no JVD, no carotid bruit, no c- spine tenderness, neck with full ROM. CHEST: Symmetric, no tenderness at palpation LUNGS: Clear to auscultation bilaterally. No wheezing or crackles. CVS: Tachycardic. S1 and S2 present, no murmurs or gallops appreciated. ABDOMEN: Soft, non-tender. No signs of distention. No rebound no guarding, and no masses palpated. Bowel sounds are normal. EXTREMITIES: FROM in all major joints, no edema, no cyanosis or clubbing. NEURO: Alert and oriented x 3. No acute neurological deficits. Speech is normal and follows commands. SKIN: Dry and warm Triage Information Reviewed: Yes Vital Signs On Initial Exam: Initial Vitals Temp Pulse Resp BP Pulse Ox 97.3 F 142 20 181/136 98 03/05/18 12:22 03/05/18 12:22 03/05/18 12:22 03/05/18 12:22 03/05/18 12:22 Vital Signs Reviewed: Yes Diagnostics - Vital Signs Vital Signs Temp Pulse Resp BP Pulse Ox 03/05/18 12:22 97.3 F 142 20 181/136 98 - Laboratory Lab Results: Lab Results 03/05/18 03/05/18 Range/Units 12:45 12:45 WBC 10.2 (3.5-10.8) 10^3/ul RBC 4.89 (4.00-5.40) 10^6/ul Hgb 15.6 (14.0-18.0) g/dl Hct 46 (42-52) % MCV 93 (80-94) fL MCH 32 H (27-31) pg MCHC 34 (31-36) g/dl RDW 14 (10.5-15) % Plt Count 171 (150-450) 10^3/ul MPV 8.5 (7.4-10.4) um3 Neut % (Auto) 80.0 (38-83) % Lymph % (Auto) 7.8 L (25-47) % [place] % (Auto) 8.1 H (0-7) % Eos % (Auto) 3.4 (0-6) % Baso % (Auto) 0.7 (0-2) % Absolute Neuts (auto) 8.2 H (1.5-7.7) 10^3/ul Absolute Lymphs (auto) 0.8 L (1.0-4.8) 10^3/ul Absolute Monos (auto) 0.8 (0-0.8) 10^3/ul Absolute Eos (auto) 0.4 (0-0.6) 10^3/ul Absolute Basos (auto) 0.1 (0-0.2) 10^3/ul Absolute Nucleated RBC 0 10^3/ul Nucleated RBC % 0 INR (Anticoag Therapy) 1.29 H (0.77-1.02) APTT 33.6 (26.0-36.3) seconds Result Diagrams: 03/05/18 12:45 03/05/18 12:45 Lab Statement: Any lab studies that have been ordered have been reviewed, and results considered in the medical decision making process. - Radiology CXR Xray Interpretation: Positive (See Comments) Radiology Interpretation Completed By: Radiologist - CARDIOMEGALY. PATIENT IS STATUS POST CHANGED STERNAL THORACOTOMY. Dr. Ashley has reviewed this report. - EKG 1250 Cardiac Rate: Tachycardia - 144 EKG Rhythm: Atrial Flutter 1339 Cardiac Rate: NL - 72 EKG Rhythm: Sinus Rhythm Ectopy: None EKG Interpretation: ST depression in leads I, II, and aVL. Re-Evaluation - Re-Evaluation First Eval Re-Evaluation Time: 13:36 Change: Improved Comment: Heart rate improved to 76 BPM. Second Eval Re-Evaluation Time: 15:52 Change: Unchanged Comment: Pt informed of the benefits of staying in the hopsital vs leaving AMA and pt chose to leave AMA. Course/Dx - Course Assessment/Plan: Blood test results without any significant abnormality except for glucose 157. Also the patient has an acute troponin is 0.16 and a BNP of 447. In the ED course the patient was given IV fluids, and he was given Cardizem 20 last bolus. After this medication was given his symptoms resolved and now he is back in a normal sinus rhythm at approximately 70 bpm. I instructed the patient that the patient possibly would benefit of admission however the patient refuses. The patient reports that he doesnt want a stent he wants to be discharged. I discussed the case with and Dr. Jordan from cardiology and he also recommends for the patient to be admitted to rule out acute coronary syndrome since the patients troponin is elevated. Again. The benefits of risk of leaving AGAINST MEDICAL ADVICE versus staying in the hospital for further workup and management however the patient wants to be sent Home. He refused the Requests for admission. Therefore the patient will be going home against medical advice. I extensively discussed with the patient the benefits and risk of leaving AMA. I also discussed the alternatives to leaving AMA, however, the patient still insist to leave the hospital AMA. The primary nurse and the charge nurse also strongly recommended that the patient should not leave AMA. Patient understands the risk of leaving AMA, which includes but is not restricted to . Patient is Alert and oriented times three and patient verbalizes understanding. Patient has full capacity and is cognitively intact. Patient signed the AMA form. Patient was also advised to return to ED if he changes his mind or if the symptoms worsen or other symptoms appear. Patient understands and agrees. - Diagnoses Provider Diagnoses: Elevated troponin, Atrial flutter with rapid ventricular response - Physician Notifications Discussed Care Of Patient With: Ramakrishna William Time Discussed With Above Provider: 13:44 Instructed by Provider To: Other - Recommends admission for troponin workup. - Critical Care Time Critical Care Time: 75-104 min Discharge - Sign-Out/Discharge Documenting (check all that apply): Patient Departure - AMA - Discharge Plan Condition: Stable Disposition: AGAINST MEDICAL ADVICE Patient Education Materials: Atrial Flutter (ED) Referrals: Dez Jason MD [Medical Doctor] - As Soon As Possible Additional Instructions: Return to the emergency department for new or worsening symptoms. Follow up with kettle firer Dr. Eren JEFFERSON. - Billing Disposition and Condition Condition: STABLE Disposition: Against Medical Advice Attestation Statement User Type: Provider - I, Dr. Ashley personally performed the services described in this documentation as scribed in my presence and it is both accurate and complete.
[2018-03-05 13:17] LABS: EGFR Non-African American 88.6 (>60)
--- OUTSIDE RECORDS SUMMARY | 2018-03-05 13:28 | XMS REPORT ---
:1955 External Reference #:[id number] Author Organization [facility] Address [address] [place] [address] [place] [address] Phone [phone] Care Team Providers Name Role Phone Derek Villareal MD Primary Care Physician Unavailable Payers Type Date Identification Numbers Payment Provider Subscriber Commercial Policy Number: [id number] [employer] Jul[employer] Number: [id number] [id number] PayID: [id number] [place] [address] Problems Date Description Provider Status Onset: 05/14/2013 Chronic ischemic heart disease Dez Jason M.D. Active Onset: 05/14/2013 Atrial fibrillation Dez Jason M.D. Active Onset: 05/14/2013 Primary cardiomyopathy Dez Jason M.D. Active Onset: 05/14/2013 Coronary arteriosclerosis Dez Jason M.D. Active Onset: 04/25/2015 Ath[place]cl heart disease of [place] Dez Jason M.D. 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 Allergies, Adverse Reactions, Alerts Date Description Reaction Status Severity Comments 07/14/2013 NKDA active Medications Medication Date Status Form Strength Qnty SIG Indications Ordering Provider Tikosyn 01/21/ Active Capsules 250mcg 60caps 1 by mouth Dez DSusy 2017 twice a Brand, day M.D. Lisinopril 10/14/ Active Tablets 10mg 1 by mouth Dez D. 2018 every day Brand, M.D. Carvedilol 10/01/ Active Tablets 6.25mg 360tab 3 tablets Dez Vargas 2018 s po twice Brand, daily M.D. Eliquis 09/23/ Active Tablets 5mg 180tab 1 by mouth I25.110 Dez Vargas 2017 s twice a Brand, day M.D. Atorvastatin 10/05/ Active Tablets 40mg 90tabs 1 by mouth Dez D. Calcium 2013 every day Brand, M.D. Aspirin 81 / Active Tablets DR 81mg po qd Unknown 0000 Loratadine / Active Tablets 10mg 1 by mouth Unknown 0000 every day Amiodarone HCL 01/13/ Hx Tablets 200mg 60tabs 1 by mouth Dez DSusy 2017 - twice a Brand, 01/21/ day for 2 .D. 2017 weeks then decrease to 1 tab a day Lisinopril 10/01/ Hx Tablets 5mg 1 by mouth Dez DSusy 2017 - every day Brand, .D. 2017 Digoxin 10/01/ Hx Tablets 250mcg 30tabs 1 by mouth Dez D. 2017 - every day Brand, M.D. 2017 Xarelto 04/25/ Hx Tablets 20mg 30tabs 1 by mouth I48.0 Dez Vargas 2014 - every day Brand, M.D. 2014 Clopidogrel 10/25/ Hx Tablets 75mg 90tabs 1 po qd Dez Vargas Bisulfate 2013 - Brand, .D. 2013 Amlodipine 04/06/ Hx Tablets 5mg 90tabs 1 by mouth Dez D. Besylate 2012 - every day Brand, M.D. 2014 Enalapril 04/06/ Hx Tablets 10mg 90tabs 1 po qd Dez Vargas Maleate 2012 - Brand, .D. 2012 Amiodarone HCL / Hx Tablets 200mg 90tabs 1/2 po qd Unknown 0000 - 2013 Atorvastatin /00/ Hx Tablets 40mg 30tabs 1 po qd Unknown 0000 - 2013 Clopidogrel 00/ Hx Tablets 75mg 30tabs 1 po qd Dez Vargas 0000 - Brand, 10/25/ M.D. 2013 Furosemide /00/ Hx Tablets 20mg 30tabs 1 po qam Unknown 0000 - 2012 Klor-Con 10 / Hx Tablets ER 10Meq 30tabs 1 po qd Unknown 0000 - 2012 Pradaxa / Hx Capsules 150mg 60caps 1 cap by Dez Vargas 0000 - mouth Brand, 10/19/ twice a M.D. 2013 day Enalapril / Hx Tablets 5mg 1 po qd Unknown Maleate 0000 - 2012 Enalapril 00/ Hx Tablets 10mg 90tabs 1 tablet Dez Vargas Maleate 0000 - po b.i.d Brand, 04/24/ Noon/ M.D. 2014 midnight Nitrostat / Hx Tablets 0.4mg one sl Unknown 0000 - Sub q5min up 03/26/ to 3 doses 2016 as needed Metoprolol / Hx Tablets 100mg 1/2 tab Unknown Tartrate 0000 - by mouth 11/18/ twice a 2018 day, (lowered in hospital ) Warfarin Sodium / Hx as I48.0 Unknown 0000 - directed 2014 Lisinopril / Hx Tablets 2.5mg 90tabs 1 by mouth Dez Vargas 0000 - every day Brand, 10/08/ M.D. 2017 Acetaminophen 00/ Hx Tablets ER 650mg 1 tab by Unknown ER 0000 - mouth q4 24/ hours as 2018 needed pain Metoprolol 00/ Hx Tablets ER 100mg 1/2 tablet Unknown Succinate ER 0000 - 24HR po twice 12/23/ daily 2018 Medications Administered in Office Medication Date Status Form Strength Qnty SIG Indications Ordering Provider Technetium TC Administered Injection Dez Vargas 99M 015 Loren Jason Tetrofosmin, Per Unit Dose Up To 40 Millicuries Technetium TC Administered Injection Delmi Ly 99M 015 PA Tetrofosmin, Per Unit Dose Up To 40 Millicuries Technetium TC Administered Injection Liliana 99M 013 Zay Trevizo M.D. Per Unit Dose Up To 40 Millicuries Vital Signs Date Vital Result Comment 01/12/2018 Height 72 inches 6'0" Heart Rate 84 /min BP Systolic Sitting 132 mmHg [place] reg cuff BP Diastolic Sitting 58 mmHg [place] reg cuff BP Systolic Standing 136 mmHg [place] reg cuff BP Diastolic Standing 60 mmHg [place] reg cuff 12/24/2017 Height 72 inches 6'0" Weight 236.00 lb with shoes Heart Rate 62 /min BP Systolic Sitting 150 mmHg Lue lg cuff BP Diastolic Sitting 80 mmHg Lue lg cuff BP Systolic Standing 130 mmHg Lue lg cuff BP Diastolic Standing 76 mmHg Lue lg cuff Respiratory Rate 16 /min BMI (Body Mass Index) 32.0 kg/m2 11/19/2017 Height 72 inches 6'0" Weight 241.00 lb with shoes Heart Rate 90 /min BP Systolic Sitting 150 mmHg Rue lg cuff BP Diastolic Sitting 88 mmHg Rue lg cuff BP Systolic Standing 150 mmHg Rue lg cuff BP Diastolic Standing 80 mmHg Rue lg cuff Respiratory Rate 16 /min BMI (Body Mass Index) 32.7 kg/m2 10/14/2017 Height 72 inches 6'0" Weight 242.00 lb w/ shoes Heart Rate 80 /min BP Systolic Sitting 178 mmHg lue large cuff BP Diastolic Sitting 96 mmHg lue large cuff Respiratory Rate 18 /min BMI (Body Mass Index) 32.8 kg/m2 Ejection Fraction 58% 05/11/13 09/23/2017 Height 72 inches 6'0" Weight 249.00 lb w/shoes Heart Rate 122 /min BP Systolic Sitting 148 mmHg lue large cuff BP Diastolic Sitting 116 mmHg lue large cuff Respiratory Rate 18 /min BMI (Body Mass Index) 33.8 kg/m2 Ejection Fraction 58% echo 05/11/13 07/04/2017 Height 72 inches 6'0" Weight 248.50 lb No shoes Heart Rate 56 /min BP Systolic Sitting 144 mmHg Rue lrg cuff BP Diastolic Sitting 82 mmHg Rue lrg cuff BP Systolic Standing 148 mmHg Rue lrg cuff BP Diastolic Standing 82 mmHg Rue lrg cuff Respiratory Rate 16 /min BMI (Body Mass Index) 33.7 kg/m2 Ejection Fraction 58% 05/11/2013-echo 04/26/2016 Height 72 inches 6'0" Weight 249.00 lb w/ shoes Heart Rate 66 /min reg BP Systolic Sitting 114 mmHg Rue, lg cuff BP Diastolic Sitting 84 mmHg Rue, lg cuff BP Systolic Standing 120 mmHg Rue BP Diastolic Standing 86 mmHg Rue Respiratory Rate 16 /min BMI (Body Mass Index) 33.8 kg/m2 Ejection Fraction 58% as of 05/11/13 echo 07/20/2015 Height 72 inches 6'0" Weight 239.00 lb w/o shoes Heart Rate 72 /min reg BP Systolic Sitting 126 mmHg Rue, reg cuff BP Diastolic Sitting 84 mmHg Rue, reg cuff BP Systolic Standing 132 mmHg Rue BP Diastolic Standing 90 mmHg Rue Respiratory Rate 18 /min BMI (Body Mass Index) 32.4 kg/m2 Ejection Fraction 55-60% as of 04/25/15 echo 04/25/2015 Height 72 inches 6'0" Weight 239.00 lb Heart Rate 80 /min BP Systolic Sitting 146 mmHg right arm, reg cuff BP Diastolic Sitting 88 mmHg right arm, reg cuff BP Systolic Standing 142 mmHg right arm, reg cuff BP Diastolic Standing 88 mmHg right arm, reg cuff Respiratory Rate 20 /min BMI (Body Mass Index) 32.4 kg/m2 Ejection Fraction 58% 05/11/13 03/30/2015 Height 72 inches 6'0" Weight 241.00 lb with shoes Heart Rate 54 /min BP Systolic Sitting 120 mmHg Ra lg cuff BP Diastolic Sitting 90 mmHg Ra lg cuff BP Systolic Standing 128 mmHg Ra lg cuff BP Diastolic Standing 86 mmHg Ra lg cuff Respiratory Rate 16 /min BMI (Body Mass Index) 32.7 kg/m2 Ejection Fraction 58% date 05/11/13 ECHO 06/16/2014 Height 71.5 inches 5'11.50" Weight 248.00 lb with shoes Heart Rate 55 /min BP Systolic Sitting 142 mmHg LA, reg cuff BP Diastolic Sitting 86 mmHg LA, reg cuff BP Systolic Standing 142 mmHg LA BP Diastolic Standing 82 mmHg LA Respiratory Rate 16 /min BMI (Body Mass Index) 34.1 kg/m2 10/21/2013 Height 71.5 inches 5'11.50" Weight 244.00 lb Heart Rate 56 /min irregular BP Systolic Sitting 134 mmHg Ra reg cuff BP Diastolic Sitting 72 mmHg Ra reg cuff BP Systolic Standing 144 mmHg Ra BP Diastolic Standing 80 mmHg Ra Respiratory Rate 18 /min BMI (Body Mass Index) 33.6 kg/m2 07/14/2013 Height 71.5 inches 5'11.50" Weight 235.00 lb Heart Rate 64 /min BP Systolic Sitting 144 mmHg LA reg cuff BP Diastolic Sitting 84 mmHg LA reg cuff BP Systolic Standing 140 mmHg LA BP Diastolic Standing 80 mmHg LA Respiratory Rate 16 /min BMI (Body Mass Index) 32.3 kg/m2 05/14/2013 Height 72 inches 6'0" Weight 232.00 lb Heart Rate 76 /min BP Systolic Sitting 142 mmHg Ra large cuff BP Diastolic Sitting 80 mmHg Ra large cuff BP Systolic Standing 134 mmHg Ra BP Diastolic Standing 72 mmHg Ra Respiratory Rate 16 /min BMI (Body Mass Index) 31.5 kg/m2 Results Test Date Test Result H/L Range Note Laboratory test 04/24/2015 Inr/Protime 1.58 High 0.78-1.07 finding Laboratory test 04/20/2015 Inr/Protime 1.55 High 0.78-1.07 finding Inr/Protime 04/17/2015 Inr 2.67 High 0.78-1.07 Pre Cath Panel 03/31/2015 Partial Thrombo 34.8 seconds 26.0-36.3 Time PTT CBC Auto Diff 03/31/2015 White Blood Count 8.6 10^3/uL 4.8-10.8 Red Blood Count 5.01 10^6/uL 4.0-5.4 Hemoglobin 15.6 g/dL 14.0-18.0 Hematocrit 47 % 42-52 Mean Corpuscular Volume 94 fL 80-94 Mean Corpuscular Hemoglobin 31 pg 27-31 Mean Corpuscular HGB Conc 33 g/dL 31-36 Red Cell Distribution Width 13 % 10.5-15 Platelet Count 179 10^3/uL 150-450 Mean Platelet Volume 10 um3 7.4-10.4 Abs Neutrophils 6.6 10^3/uL 1.5-7.7 Abs Lymphocytes 0.9 10^3/uL Low 1.0-4.8 Abs Monocytes 0.6 10^3/uL 0-0.8 Abs Eosinophils 0.3 10^3/uL 0-0.6 Abs Basophils 0.1 10^3/uL 0-0.2 Abs Nucleated RBC 0 10^3/uL Granulocyte % 77.6 % 38-83 Lymphocyte % 10.0 % Low 25-47 Monocyte % 7.5 % 1-9 Eosinophil % 4.0 % 0-6 Basophil % 0.9 % 0-2 Nucleated Red Blood Cells % 0 Inr/Protime 03/31/2015 Inr 1.01 0.78-1.07 Basic Metabolic Panel 03/31/2015 Sodium 140 mmol/L 133-145 Potassium 3.8 mmol/L 3.5-5.0 Chloride 104 mmol/L 101-111 Co2 Carbon Dioxide 25 mmol/L 22-32 Anion Gap 11 mmol/L 2-11 Glucose 96 mg/dL 70-100 Blood Urea Nitrogen 15 mg/dL 6-24 Creatinine 0.91 mg/dL 0.67-1.17 BUN/Creatinine Ratio 16.5 8-20 Calcium 9.1 mg/dL 8.6-10.3 Egfr Non- 84.7 >60 Egfr 108.9 >60 1 Basic Metabolic Panel 04/02/2013 Sodium 136 mmol/L 133-145 Potassium 3.7 mmol/L 3.5-5.0 Chloride 105 mmol/L 101-111 Co2 Carbon Dioxide 24.0 mmol/L 22-32 Anion Gap 7.0 mmol/L 2-11 Glucose 132 mg/dL High 70-100 Blood Urea Nitrogen 17 mg/dL 6-24 Creatinine 1.10 mg/dL 0.50-1.40 BUN/Creatinine Ratio 15.5 8-20 Calcium 8.6 mg/dL 8.1-9.9 Egfr Non- 68.5 >60 Egfr 88.1 >60 2 1 Because ethnic data is not always readily available, this report includes an eGFR for both -Americans and non- Americans. The National Kidney Disease Education Program (NKDEP) does not endorse the use of the MDRD equation for patients that are not between the ages of 18 and 70, are , have extremes of body size, muscle mass, or nutritional status, or are non- or non-. According to the National Kidney Foundation, irrespective of diagnosis, the stage of the disease is based on the level of kidney function: Stage Description GFR(mL/min/1.73 m(2)) 1 Kidney damage with normal or decreased GFR 90 2 Kidney damage with mild decrease in GFR 60-89 3 Moderate decrease in GFR 30-59 4 Severe decrease in GFR 15-29 5 Kidney failure <15 (or dialysis) 2 Because ethnic data is not always readily available, this report includes an eGFR for both -Americans and non- Americans. The National Kidney Disease Education Program (NKDEP) does not endorse the use of the MDRD equation for patients that are not between the ages of 18 and 70, are , have extremes of body size, muscle mass, or nutritional status, or are non- or non-. According to the National Kidney Foundation, irrespective of diagnosis, the stage of the disease is based on the level of kidney function: Stage Description GFR(mL/min/1.73 m(2)) 1 Kidney damage with normal or decreased GFR 90 2 Kidney damage with mild decrease in GFR 60-89 3 Moderate decrease in GFR 30-59 4 Severe decrease in GFR 15-29 5 Kidney failure <15 (or dialysis) Procedures Date CPT Code Description Status 01/13/2018 44884 Cardioversion Completed 01/12/2018 72465 EKG Tracing & Interpretation Completed 12/24/2017 61117 EKG Tracing & Interpretation Completed 11/19/2017 68805 EKG Tracing & Interpretation Completed 11/13/2017 71858 ECHO Transthoracic, Real-Time 2D With Doppler And Color Completed Flow 11/13/2017 77284 ECHO Transthoracic, Real-Time 2D With Doppler And Color Completed Flow 10/28/2017 19043 Cardioversion Completed 10/28/2017 78080 EKG, Interpretation Only Completed 10/28/2017 30002 Echocardiography, Transesophageal, Real Time W/Image 2D Completed W/W/O M-M 10/28/2017 95822 Pulse Wave/Continuous-Interp.RPT Completed 10/28/2017 69893 Color Flow Doppler/Interp & Reprt Completed 09/30/2017 26256 Moderate Sedation Services; Same Phys Intl 15 Mins; PT Completed >=5 Years 09/30/2017 59615 Color Flow Doppler/Interp & Reprt Completed 09/30/2017 72034 Pulse Wave/Continuous-Interp.RPT Completed 09/30/2017 63478 Echocardiography, Transesophageal, Real Time W/Image 2D Completed W/W/O M-M 09/23/2017 55681 EKG Tracing & Interpretation Completed 07/04/2017 08895 EKG Tracing & Interpretation Completed 04/26/2016 30961 EKG Tracing & Interpretation Completed 04/25/2015 62752 EKG Tracing & Interpretation Completed 04/04/2015 37166 EKG, Interpretation Only Completed 04/04/2015 90400 Left Heart Cath. Incl S/I Coronaries, Angio S/I V Gram Completed If Done 03/31/2015 08696 Stress Test Completed 03/31/2015 57076 Myocardial Perfusion Imaging Tomographic (Spect) Completed Multiple Studies 03/31/2015 78998 Myocardial Perfusion Imaging Tomographic (Spect) Completed Multiple Studies 03/30/2015 82247 EKG Tracing & Interpretation Completed 06/16/2014 87347 EKG Tracing & Interpretation Completed 10/21/2013 18872 EKG Tracing & Interpretation Completed 07/14/2013 00643 EKG Tracing & Interpretation Completed 05/20/2013 50054 Stress Test Completed 05/20/2013 77342 Myocardial Perfusion Imaging Tomographic (Spect) Completed Multiple Studies 05/11/2013 47588 ECHO Transthoracic, Real-Time 2D With Doppler And Color Completed Flow 04/06/2013 91856 EKG Tracing & Interpretation Completed 03/30/2013 85297 EKG, Interpretation Only Completed 03/29/2013 25668 RT & lt Cath W/Injx HRT Art&L Ventr Img S&I Completed 03/29/2013 09377 EKG, Interpretation Only Completed 03/29/2013 74411 Percutaneous Transcatheter Placement Of Intracoronary Completed Stent 03/28/2013 66928 ECHO Transthorasic Realtime 2D W Doppler & Color Flow Completed Hosp 03/28/2013 49542 Treadmill Interp/Report Only Completed 03/28/2013 57473 Stress Test Supervsn W/Out I/R Completed 03/27/2013 70136 EKG, Interpretation Only Completed Encounters Type Date Location Provider CPT E/M Dx Office Visit 01/21/2018 [facility] Alejandro Trevizo M.D. 80074 I48.4 9:10a [employer] Furn[employer] Office Visit 01/20/2018 [facility] Jackelin Jason 63326 I48.91 3:17p Chiquis Pimentel I48.92 I25.10 Z51.81 Office Visit 12/24/2017 9:15a [facility] Jackelin Jason 28499 I42.9 Chiquis Pimentel I48.4 I25.110 Office Visit 11/19/2017 4:00p [facility] Of Dez NunezSusy Jason, 90107 I42.9 [facility] M.D. 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 I25.110 I48.4 Office Visit 10/03/2017 11:21a [facility] SSusy Benítez, 44818 I48.91 M.D. I47.2 I42.9 Office Visit 10/02/2017 11:19a [facility] S. Maghaydah, 01631 I48.91 M.D. I42.9 I25.110 Z95.1 Office Visit 10/01/2017 3:06p [facility] Of Liliana Trevizo M.D. 81701 I48.4 [facility] I42.9 I51.3 Office Visit 09/23/2017 1:45p [facility] Of Dez NunezSusy Jason, 56344 I25.110 [facility] AT [facility] M.D. R00.2 I48.92 Office Visit 07/04/2017 2:00p [facility] Of Dez NunezSusy Jason, 23617 I25.110 [facility] M.D. I48.0 Office Visit 04/26/2016 3:00p [facility] Of Dez NunezSusy Jason, 45727 I25.110 [facility] M.D. I48.0 Office Visit 07/20/2015 11:15a [facility] Of Dez KandisSusy Jason, 83873 I48.0 [facility] M.D. I25.110 I25.10 Office Visit 04/25/2015 1:45p [facility] Of Dez NunezSusy Jason, 25409 I48.0 [facility] AT [facility] M.D. I25.110 Office Visit 03/30/2015 10:15a [facility] Of Dez Jason, 81135 427.31 [facility] M.D. 414.01 786.50 Office Visit 06/16/2014 8:30a [facility] Of Dez Jason, 18626 427.31 [facility] M.D. 414.01 Office Visit 10/21/2013 9:30a [facility] Dez Jason, 95056 427.31 [employer] M.D. 414.01 Office Visit 07/14/2013 3:30p [facility] Dez NunezSusy Eren, 77059 427.31 [employer] Furn[employer] M.D. 414.9 414.01 Office Visit 05/14/2013 3:30p [facility] Dez NunezSusy Jason, 00393 414.9 [employer] Furn[employer] M.D. 427.31 425.4 414.01 Office Visit 04/06/2013 12:45p [facility] Dez Jason, 64857 427.31 [employer] Furn[employer] Operator M.D. 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 Operator M.DSusy 427.32 Office Visit 03/29/2013 4:32p [facility], Mat Queen, 17541 427.32 Hospitalists MDesmond 428.1 401.9 696.1 Office Visit 03/28/2013 4:32p [facility],pc Mat Queen, 87050 427.32 Hospitalists MDesmond 428.1 401.9 696.1 Office Visit 03/28/2013 3:23p [facility] Dez NunezSusy Jason, 70810 428.0 Chiquis M.DSusy 427.31 425.4 Office Visit 03/27/2013 4:31p [facility], Mat Queen, 23277 428.1 Hospitalists MDesmond 427.32 401.9 696.1 Office Visit 03/27/2013 3:13p [facility] Dez NunezSusy Jason, 57323 427.31 Chiquis M.DSusy 786.05 786.50 Office Visit 03/26/2013 4[facility] [place] [address] 427.32 Assoc, Hospitalists M.Alicia 428.1 696.1 Plan of Care Future Appointment(s):03/11/2018 9:15 am - Dez Jason M.D. at [facility]02/27/2018 10:00 am - [facility] ECHO Schedule at [facility]12/24/2017 - Dez Jason M.D.I42.9 Cardiomyopathy, unspecifiedNew Orders:EchocardiogramFollow up:2 nxldtpN24.4 Atypical atrial iesigeqY53.110 [place] art w unstable ang pctrs
[2018-03-05 14:00] VITALS: BP 140/80
== END 2018-03-05 13:51 | disposition left against medical advice (07) ==
LOC: ED 12:20
DX: I48.92 Unspecified atrial flutter (principal); R79.89 Other specified abnormal findings of blood chemistry; R00.0 Tachycardia, unspecified; I51.7 Cardiomegaly; Z79.01 Long term (current) use of anticoagulants; Z87.891 Personal history of nicotine dependence; Z53.21 Procedure and treatment not carried out due to patient leaving prior to being seen by health care provider; Z98.890 Other specified postprocedural states
CPT/HCPCS: 36415; 71045; 80053; 82550; 82553; 83605; 83735; 83880; 84443; 84484; 85025; 85610; 85730; 93005; 96374; 99283; J3490

== ENCOUNTER 2018-03-05 20:55 | Observation (INO) | payer OTHER ==
[2018-03-05] MEDS ORDERED: Diltiazem IV VIAL* 5 MG/ML 10 ML VIAL IV SLOW PU ONE (21:44)
--- NOTE | 2018-03-05 21:55 | ED ---
HPI Cardiac - HPI Summary HPI Summary: This is scribe Ronn Galaviz documenting for attending Gurinder Curtis MD. This patient is a 62 year old M presenting to [facility] with a chief complaint of irregular tachychardic heart rate since 22:00 last night. He describes it as a rumbling in my chest that lasted until 03:00 this morning. It came back at 08: 00, which prompted him to present to [facility]. He left AMA and the flutter came back at 17:00. Patient denies CP, dyspnea, and SOB. He is currently on Tikosyn to control his heart flutter and Eliquis and Lipitor for high BP. Patient has a PMHx of psoriasis and atrial flutter. He denies any hx of angina or ME. Patient has SHx of CABG. I, Dr. Curtis, personally performed the services described in this documentation as scribed in my presence and it is both accurate and complete. - History of Current Complaint Chief Complaint: EDDysrhythmPalp Stated Complaint: POSS A.FIB Time Seen by Provider: 03/05/18 21:32 Hx Obtained From: Patient Onset/Duration: Started Hours Ago, Still Present Timing: Intermittent, Lasting Hours Pain Intensity: 0 Pain Scale Used: 0-10 Numeric Associated Signs and Symptoms: Positive: Other: - Denies dyspnea. Negative: Chest Pain, Shortness of Breath - Additional Pertinent History Primary Care Physician: [id number] - Allergy/Home Medications Allergies/Adverse Reactions: Allergies Allergy/AdvReac Type Severity Reaction Status Date / Time No Known Allergies Allergy Verified 03/05/18 12:25 PMH/Surg Hx/FS Hx/Imm Hx Endocrine/Hematology History: Reports: Hx Anticoagulant Therapy - eliquis Denies: Hx Blood Transfusions, Hx Anemia, Hx Unexplained Bleeding Cardiovascular History: Reports: Hx Congestive Heart Failure, Hx Coronary Artery Disease, Hx Hypercholesterolemia, Hx Hypertension, Other Cardiovascular Problems/Disorders - 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, MAZE procedure, atrial flutter Denies: Hx Aneurysm, Hx Angina, Hx Angioplasty, Hx Auto Implanted Cardiovert Defib, Hx Cardiac Arrest, Hx Cardiomegaly, Hx Congenital Heart Disease, Hx Deep Vein Thrombosis, Hx Embolism, Hx Hypotension, Hx Pacemaker/ICD, Hx Peripheral Vascular Disease, Hx Rheumatic Fever, Hx Syncope, Hx Valvular Heart Disease Respiratory History: Reports: Hx Seasonal Allergies, Hx Sleep Apnea Denies: Hx Asthma, Hx Chronic Bronchitis, Hx Chronic Obstructive Pulmonary Disease (COPD), Hx Cystic Fibrosis, Hx Lung Cancer, Hx Pleural Effusion, Hx Pneumonia, Hx Pulmonary Edema, Hx Pulmonary Embolism, Other Respiratory Problems /Disorders GI History: Reports: Hx Jaundice Denies: Hx Cirrhosis, Hx Crohn's Disease, Hx Diverticulosis, Hx Gall Bladder Disease, Hx Gastroesophageal Reflux Disease, Hx Gastrointestinal Bleed, Hx Hiatal Hernia, Hx Irritable Bowel, Hx Obstructive Bowel, Hx Ileostomy, Hx Pyloric Stenosis, Hx Ulcer, Other GI Disorders History: Denies: Hx Dialysis Musculoskeletal History: Reports: Hx Bursitis, Hx Orthopedic Injury - wrist fracture, Other Musculoskeletal History - ACL repair Denies: Hx Arthritis, Hx Back Problems, Hx Congenital Bone Abnormalities, Hx Fibromyalgia, Hx Gout, Hx Osteoporosis, Hx Scoliosis, Hx Tendonitis Sensory History: Reports: Hx Contacts or Glasses - pt. wearing contacts Denies: Hx Cataracts, Hx Eye Injury, Hx Eye Prosthesis, Hx Glaucoma, Hx Legally Blind, Hx Macular Degeneration, Hx Vision Problem, Hx Deafness, Hx Hearing Aid, Hx Hearing Problem, Other Sensory Impairments Opthamlomology History: Reports: Hx Contacts or Glasses - pt. wearing contacts Denies: Hx Cataracts, Hx Eye Injury, Hx Eye Prosthesis, Hx Glaucoma, Hx Legally Blind, Hx Macular Degeneration, Hx Vision Problem, Other Sensory Impairments Neurological History: Denies: Hx Seizures, Hx Spinal Cord Injury, Hx Transient Ischemic Attacks ( TIA) Psychiatric History: Denies: Hx Schizophrenia - Surgical History Surgery Procedure, Year, and Place: arthrocopic knee surgery 1989. CABG 2015. Saphenous vein graph OM1. ACL reair Hx Anesthesia Reactions: No Infectious Disease History: No Infectious Disease History: Reports: Hx Hepatitis - 35 yrs ago Denies: Hx Human Immunodeficiency Virus (HIV), Hx of Known/Suspected MRSA, Hx Shingles, Hx Tuberculosis, Hx Known/Suspected VRE, Hx Known/Suspected VRSA, History Other Infectious Disease, Traveled Outside the [place] in Last 30 Days - Family History Known Family History: Positive: Cardiac Disease - Social History Occupation: Employed Full-time - [employer]3] Alcohol Use: Occasionally Alcohol Amount: 1 glass per day Substance Use Type: Reports: None Smoking Status (MU): Former Smoker Type: Cigarettes Review of Systems Positive: Other - rumbling in my chest," tachycardic heart rate, atrial flutter. Negative: Chest Pain Negative: Shortness Of Breath, Other - Denies dyspnea All Other Systems Reviewed And Are Negative: Yes Physical Exam - Summary Physical Exam Summary: Appearance: Well-appearing, Well-nourished, lying in bed comfortably Skin: Warm, dry, no obvious rash Eyes: sclera anicteric, no conjunctival pallor ENT: mucous membranes moist, pharynx appears normal Neck: Supple, nontender Respiratory: Clear to auscultation, no signs of respiratory distress Cardiovascular: Regular, rapid hearbeat. Normal S1, S2. No murmurs. Normal distal pulses in tibial and radial bilaterally. Abdomen: Soft, nontender, normal active bowel sounds present Musculoskeletal: Normal, Strength/ROM Intact Neurological: A&Ox3, awake and alert, mentation is normal, speech is fluent and appropriate Psychiatric: affect is normal, does not appear anxious or depressed Triage Information Reviewed: Yes Vital Signs On Initial Exam: Initial Vitals Temp Pulse Resp BP Pulse Ox 98.0 F 145 14 188/100 97 03/05/18 20:56 03/05/18 20:56 03/05/18 20:56 03/05/18 20:56 03/05/18 20:56 Vital Signs Reviewed: Yes Diagnostics - Vital Signs Vital Signs Temp Pulse Resp BP Pulse Ox 03/05/18 20:56 98.0 F 145 14 188/100 97 - Laboratory Lab Statement: Any lab studies that have been ordered have been reviewed, and results considered in the medical decision making process. Disposition - Diagnoses Provider Diagnoses: Atrial flutter with rapid ventricular response - Physician Notifications Discussed Care Of Patient With: Charlie Buck Time Discussed With Above Provider: 23:35 Instructed by Provider To: Admit As Inpatient Discharge - Sign-Out/Discharge Documenting (check all that apply): Patient Departure - Discharge Plan Condition: Fair Disposition: ADMITTED TO [facility] - Billing Disposition and Condition Condition: FAIR Disposition: Admitted to [facility]
[2018-03-05] MEDS ORDERED: Diltiazem IV* 5 MG/ML 5 ML VIAL (for loading dose/IV Push) (25 MG) ONE (22:06)
[2018-03-05] MEDS ORDERED: Diltiazem DRIP* 100 MG/100 ML ADDV.BAG IVPB ONE (23:04)
--- NOTE | 2018-03-06 02:47 | HP ---
H&P (Free Text) History and Physical: PCP: Janiya Villareal MD Cardiology: Janiya Jason MD Date/Time: 03/06/2018 0230 CC: AFLUT/RVR HPI: Mr Marshall is a 62YO male HX AFLUT, CAD/3vCABG, CHF, primary cardiomyopathy, HTN, HLD, recent L atrial clot on apixaban reports onset of AFLUT at 2200 03/04/2018 which spontaneously converted around 0300 03/05 only to return again around 0803/05. He called [facility] who advised him to be evaluated at [facility]. There he was rate controlled and advised observation for a troponin of 0.16, but signed out AMA as he has work deadlines he is concerned about. 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 Repeat troponin is 0.11. He has had some diaphoresis & palpitations, but denies chest pain, SOB, and N/V. ECG from prior visit was junctional tachycardia, rate 144. PMedHx AFLUT CAD/3vCABG CHF primary cardiomyopathy HTN HLD recent L atrial clot on apixaban Ambulatory Orders Atorvastatin* [Lipitor 40 MG*] 40 mg PO 2100 04/04/15 Apixaban* [Eliquis*] 5 mg PO BID #60 tab 10/03/17 Lisinopril TAB* [Prinivil TAB 5 MG*] 10 mg PO 0900 01/13/18 Carvedilol TAB* [Coreg TAB*] 12.5 mg PO BID #60 tab 01/22/18 Dofetilide CAP* [Tikosyn CAP*] 250 mcg PO BID #60 cap 01/22/18 Triamcinolone 0.5% OINT * 1 applic TOPICAL Q48H tube 01/22/18 Aspirin 81 mg CHEW TAB* [Aspirin Low Dose TAB*] 81 mg PO QAM 03/05/18 Betamethasone Dipropionate [Betamethasone Dipropionat] 0.05 % TOPICAL Q48HR 04/14 Hydrocortisone 1% CREAM* [Hytone Cream 1%*] 1 applic TOPICAL DAILY PRN 03/05/18 LoraTADine TAB(NF) [Claritin 10 MG TAB(NF)] 10 mg PO QPM 03/05/18 Oxymetazoline 0.05% NASAL SPR* [Afrin 0.05% NASAL SPRAY*] 1 spray BOTH NARES QPM 03/05/18 Allergies No Known Allergies Allergy (Verified 03/05/18 12:25) PSurgHx 3vCABG Chambers maze procedure ablation SocHx: quit smoking ~25years ago, 5-6 glasses of wine weekly, 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 drugs; 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; lives with his ; full code status FamHx: Father: early onset CAD ROS: as above, otherwise reviewed and all were negative vitals: Vital Signs Temp 36.7 C 03/05/18 20:56 Pulse 119 03/06/18 03:45 Resp 23 03/06/18 03:45 BP 147/119 03/06/18 03:45 Pulse Ox 97 03/06/18 03:45 Intake & Output 03/05/18 03/05/18 03/06/18 11:59 23:59 11:59 Intake Total 99.5 Balance 99.5 Weight 104.326 kg Intake: IV Fluids 2.5 IVPB 97 Constitutional: NAD, normally developed, obese white male HEENM: atraumatic; sclera/conjunctiva: anicteric/clear; hearing: clinically intact; oropharynx: clear, mucosa moist Neck: soft tissue: non-tender; thyroid: normal Pulmonary: clear to auscultation bilaterally, good aeration, no accessory muscle use CV: TIR/IR, normal S1S2, no carotid bruit, no jugular venous distention, 2+ B DP /PT, no edema Abdominal: soft, non-distended, non-tender, no rebound/guarding/rigidity, normoactive bowel sounds, no hepatosplenomegaly or masses, no costovertebral angle tenderness Musculoskeletal: general: grossly intact, non-tender Integumental: patches of silvery scale over erythematous base consistent w/ HX psoriasis Psychiatric orientation: AA&O to PPS affect: irritable mood: disagreeable eye contact: poor content: reliable responses: charis insight: poor Testing: Lab Results 03/05/18 Range/Units 22:03 Troponin I 0.11 H* (<0.04) ng/mL ECG, personally reviewed: AFLUT 2:1 block rate 144, concave upwards J-point elevation V1-3, T-wave inversion I CXR, personally reviewed: IMPRESSION: CARDIOMEGALY. PATIENT IS STATUS POST CHANGED STERNAL THORACOTOMY. Impression: 62M extensive cardiac HX presents with AFLUT/RVR w/ elevated troponin DIAGNOSIS & PLAN Primary AFLUT RVR : recent LA clot : rate control via diltiazem GTT : continue apixaban & dofetilide : supplemental oxygen : consider cardioversion in AM if not spontaneously converted : supportive care Secondary CAD/3vCABG : continue aspirin CHF primary cardiomyopathy : continue lisinopril & carvedilol HTN : continue lisinopril & carvedilol HLD : continue atorvastatin Admission Rational: observation for AFLUT control, consideration for cardioversion DVTp: apixaban Code Status: full HCP:
[2018-03-06] MEDS ORDERED: Melatonin 3 MG TAB PO PRN (02:53)
[2018-03-06] MEDS ORDERED: Acetaminophen TAB* 325 MG PO PRN (02:53)
[2018-03-06] MEDS ORDERED: NS 0.9% 1000 ML* 1,000 ML IV SCH (03:00)
[2018-03-06] MEDS ORDERED: Diltiazem DRIP* 100 MG/100 ML ADDV.BAG IVPB ONE ×4 (03:55→08:15)
[2018-03-06 06:09] LABS: Hematocrit 46 % (42-52); Hemoglobin 15.4 g/dl (14.0-18.0); Mean Corpuscular HGB Conc 34 g/dl (31-36); Mean Corpuscular Hemoglobin 31 pg (27-31); Mean Corpuscular Volume 93 fL (80-94); Mean Platelet Volume 8.6 um3 (7.4-10.4); Platelet Count 191 10^3/ul (150-450); Red Blood Count 4.94 10^6/ul (4.00-5.40); Red Cell Distribution Width 14 % (10.5-15); White Blood Count 11.4 10^3/ul (3.5-10.8)
[2018-03-06 06:30] LABS: EGFR Non-African American 97.6 (>60)
[2018-03-06] MEDS ORDERED: Digoxin IV* 0.5 MG/2 ML AMP (0.25 MG/ML) IV SLOW PU ONE ×3 (07:41→15:09)
[2018-03-06] MEDS ORDERED: Metoprolol Tartrate IV* 1 MG/ML 5 ML VIAL IV ONE (08:14)
[2018-03-06] MEDS: Omeprazole CAP* 20 MG PO SCH ×2 (08:46→08:52)
[2018-03-06] MEDS ORDERED: Apixaban* 5 MG TAB PO SCH (09:00)
[2018-03-06] MEDS ORDERED: Dofetilide CAP* 250 MCG PO SCH (09:00)
[2018-03-06] MEDS ORDERED: Carvedilol TAB* 25 MG PO SCH (09:00)
[2018-03-06] MEDS ORDERED: Aspirin 81 mg CHEW TAB* 81 MG TAB.CHEW PO SCH (09:00)
[2018-03-06] MEDS ORDERED: Lisinopril TAB* 10 MG PO SCH (09:00)
[2018-03-06] MEDS ORDERED: Carvedilol TAB* 6.25 MG PO SCH (09:00)
[2018-03-06] MEDS ORDERED: Potassium Chloride LIQUID* 20 MEQ PACKET PO ONE (11:11)
[2018-03-06] MEDS ORDERED: Diltiazem CD CAP* 120 MG PO SCH (12:00)
--- NOTE | 2018-03-06 14:17 | RAD ---
Edited for charges. Indication: Coronary artery disease, abnormal EKG. Myocardial perfusion scan was performed utilizing 1 day protocol. Rest myocardial perfusion was performed after intravenous injection of 10.8 mCi of technetium 99m tetrofosmin. Treadmill stress study was performed. Maximum heart rate achieved was 104% of the maximum predicted value. 25.4 mCi of technetium 99m tetrofosmin was injected for the stress portion of the study. There is heterogeneous uptake of the radiotracer. There is areas of thinning in the anterior septal wall as well as in the anterior lateral wall which appears to be similar on both stress and rest images.There is some apical thinning noted. No definite evidence of reversible defects are noted. The ejection fraction at stress is 40%. Evaluation of wall motion demonstrates global hypokinesis. When compared to previous exam reversible change in the anterior apical wall is not identified. IMPRESSION: Ventriculomegaly with areas of persistent perfusion defect in the anteroseptal wall and anterior lateral wall which appears worse on the rest than on the stress images. ASSESSMENT: High risk Based on imaging criteria from ACC/AHA 2002 Guideline Update for the Management of Patients With Chronic Stable Angina Table 23. Noninvasive Risk Stratification. MTDD
--- NOTE | 2018-03-06 14:39 | ECHO ---
Patient: DANYEL TOWNSEND [facility] Rec#: [id number] : 1955 Date: 03/06/2018 Age: 62y Height: 183 cm / 72.0 in Weight: 104 kg / 229.2 lbs Sex: M BSA: 2.26 Room#: 434 Admit Date#: 03/06/2018 Type: Inpatient Referring: Robbie Mejia Reading: Ramakrishna William MD [employer]ical [employer] Party: Britney Adams RDCS CC: Derek Villareal MD Transthoracic Echocardiogram Indication: Congestive heart failure, elevated troponins, abnormal EKG BP: 169/91 HR: 82 Rhythm: NSR with PVCs Findings History: A-flutter, CHF, CAD with CABG, HTN, HLD, primary cardiomyopathy, s/p Chambers maze procedure, former smoker. Technical Comments: The study quality is fair. Completed at 1230. Left Ventricle: The left ventricular chamber size is normal. Moderate concentric left ventricular hypertrophy is observed. There is mildly decreased left ventricular systolic function. The estimated ejection fraction is 40-45%. closer to 45%. Relative hypokinesis of the septal segements and infero apical segments. The assessment of diastolic function is non-diagnostic. The basal anteroseptal, basal inferior, basal inferoseptal, mid anteroseptal, mid inferoseptal, apical septal, and apical inferior wall segments are hypokinetic (score 2). Overall wallmotion score index is 1.44 Left Atrium: The left atrium is moderate to severely dilated. Right Ventricle: The right ventricle is moderately dilated. The right ventricular global systolic function is mildly to moderately reduced. Right Atrium: The right atrial cavity size is severely dilated. Aortic Valve: The aortic valve is trileaflet. The aortic valve leaflets are mildly thickened. Systolic excursion of the aortic valve cusps is reduced. There is aortic annular calcification. There is a trace of aortic regurgitation. There is borderline aortic stenosis present. Mitral Valve: There is mitral annular calcification. The mitral valve leaflets are mildly thickened. There is mild mitral regurgitation. There is no evidence of mitral stenosis. Tricuspid Valve: The tricuspid valve leaflets are normal. There is mild tricuspid regurgitation. Unable to estimate the right ventricular systolic pressure. There is no tricuspid stenosis. Pulmonic Valve: The pulmonic valve appears normal. There is a trace pulmonic regurgitation. There is no pulmonic stenosis. Pericardium: There is no significant pericardial effusion. A pericardial fat pad is visualized. Aorta: There is moderate dilatation of the ascending aorta. There is no dilatation of the aortic arch. There is mild dilatation of the aortic root. Pulmonary Artery: The main pulmonary artery appears normal. Venous: The inferior vena cava appears normal in size. There is a greater than 50% respiratory change in the inferior vena cava dimension. Conclusions The study quality is fair. Moderate concentric left ventricular hypertrophy is observed. There is mildly decreased left ventricular systolic function. The estimated ejection fraction is 40-45%, closer to 45%. Relative hypokinesis of the septal segements and inferoapical segments. The left atrium is moderate to severely dilated. The right ventricle is moderately dilated. The right ventricular global systolic function is mildly to moderately reduced. The right atrial cavity size is severely dilated. There is borderline aortic stenosis present. There is a trace of aortic regurgitation. There is mild mitral regurgitation. There is mild tricuspid regurgitation. There is moderate dilatation of the ascending aorta. Interval decrease in EF c/t 18 when it was 55-60%. Measurements Name Value Normal Range RVIDd (AP) 2D 3 cm (0.9 - 2.6) RVDdMajor (2D) 6 cm (2.2 - 4.4) RAd ISD 4CH 6.1 cm (3.4 - 4.9) RA (A4C)W 5.2 cm (2.9 - 4.6) IVSd (2D) 1.5 cm (0.6 - 1) LVPWd (2D) 1.7 cm (0.6 - 1) LVIDd (2D) 5.1 cm (3.6 - 5.4) LVIDs (2D) 3.7 cm - LV FS (2D) 27 % (25 - 45) Aortic Annulus 2.1 cm (1.4 - 2.6) Ao root diameter (2D) 3.9 cm (2.1 - 3.5) Ascending Ao 4.1 cm (2.1 - 3.4) Aortic arch 2.9 cm (1.8 - 3.4) LA dimension (AP) 2D 4.6 cm (2.3 - 3.8) LAd ISD 4CH 5.9 cm (2.9 - 5.3) LA ISD 4CH W 5 cm (2.5 - 4.5) Name Value Normal Range LA ESV BP (A/L) index 43 ml/m2 - Name Value Normal Range MV E-wave Vmax 0.8 m/sec - MV deceleration time 95 msec - MV A-wave Vmax 1.1 m/sec - MV E:A ratio 0.8 ratio - LV septal e' Vmax 0.05 m/sec - LV lateral e' Vmax 0.04 m/sec - LV E:e' septal ratio 16 ratio - LV E:e' lateral ratio 20 ratio - Name Value Normal Range AV Vmax 1.5 m/sec - AV VTI 24.4 cm - AV peak gradient 9 mmHg - AV mean gradient 5 mmHg - LVOT diameter 2.2 cm - LVOT Vmax 0.8 m/sec - LVOT VTI 15.2 cm - LVOT peak gradient 3 mmHg - LVOT mean gradient 1 mmHg - ROCAEL Vmax 0.5 m/sec - Name Value Normal Range IVC diameter 2 cm - Name Value Normal Range PV Vmax 0.9 m/sec - PV peak gradient 4 mmHg - Wallmotion BAS Hypokinetic BA Normal BAL Normal EFRAIN Normal BI Hypokinetic BIS Hypokinetic MAS Hypokinetic MA Normal MAL Normal MIL Normal HI Normal MIS Hypokinetic Hypokinetic AA Normal AL Normal AI Hypokinetic APEX Normal
[2018-03-06 15:44] VITALS: BP 153/85
--- NOTE | 2018-03-06 16:26 | CONS ---
CC: Dr. Jason; Dr. Villareal; Dr. Manley CONSULTATION REPORT: DATE OF CONSULT: 03/06/18 PATIENT OF: Dr. Jason and Dr. Villareal REASON FOR EVALUATION: Atrial arrhythmias. HISTORY OF PRESENT ILLNESS: This is a very pleasant 62-year-old gentleman who has a history of coronary artery disease, status post bypass grafting and stenting as well as atrial arrhythmias status post maze procedure as well as a complex ablation in November. He had recurrent symptoms after that and was cardioverted and started on Tikosyn in December. He did well for about 6 weeks, but had some episodes of flutter this week. He also said he started drinking caffeinated coffee this week with some half-caffeinated coffee. He says that on Friday evening he stood up from his desk and felt his heart fluttering. He felt a little diaphoretic. He said later that night, it went away at about 3 a.m. morning he got up at about 8 a.m. and had fluttering again. He went to the emergency room was documented to be in A-flutter with a rapid ventricular response. He was treated with diltiazem and had conversion to sinus rhythm and he also was noted to have an elevated troponin, but left AMA. He said that evening he went back into flutter and decided to come back to the emergency room. He was given IV diltiazem again with some improvement, but dropped his heart rate into the 40s. His diltiazem was reduced and by this morning he was in sinus rhythm for brief period of time. He continues to have frequent APCs and PVCs and has some episodes of what appears to be sinus rhythm at 85 versus an atypical atrial tachycardia with 2:1. He is asymptomatic at present. He denies any chest pain, orthopnea, no peripheral edema. He does report that he drinks on average 1 drink a day, but has 2 to 3 drinks on Friday nights and occasionally will split a bottle of wine with his . Apparently, he has a wine cellar and likes to consume wine. PAST MEDICAL HISTORY: Includes coronary artery bypass grafting, 3-vessel coronary bypass grafting in 2014. At that time, he had a maze procedure. Also , has a history of atrial flutter. On 11/27/17, he underwent successful ablation of a perimitral left atrial flutter pathway with ablation across the LA roof and anterior LA. He had a successful ablation of typical right atrial flutter with ablation across the tricuspid valve IVC isthmus and he had successful redo PCI with radiofrequency. He has psoriasis. 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 He also had a left atrial clot noted on his BARI in September, which resolved on the October BARI. MEDICATIONS: Outpatient medications include, 1. Lipitor 40 mg a day. 2. Eliquis 5 mg b.i.d. 3. Lisinopril 10 mg a day. 4. Carvedilol 25 mg b.i.d. 5. Tikosyn 250 mg b.i.d. 6. Triamcinolone topical q.48 as needed. 7. Aspirin 81 mg a day. 8. Betamethasone as needed, q.48. 9. Hydrocortisone. 10. Loratadine. 11. Oxymetazoline nasal spray as needed q.p.m. ALLERGIES: He has no known drug allergies. FAMILY HISTORY: Early onset CAD. 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 He is , accompanied by his . He also has 2 children. He quit smoking approximately 25 years ago. REVIEW OF SYSTEMS: Negative except as above. His blood pressure has been elevated in the hospital, he reports they were in the 140s at home and he feels somewhat anxious in the hospital. PHYSICAL EXAM: He is a well-developed, well-nourished gentleman. No apparent distress. No significant JVD. Cardiac Exam: S1, S2. No clear murmurs, gallops, or rubs. Chest was clear. Abdominal Exam: Bowel sounds present, nontender. Femoral pulses intact without bruits. Distal pulses intact. There was psoriatic plaques over his lower extremities. Motor strength 5/5 bilaterally. Deep tendon reflexes 2/4. Alert and oriented x3. Heart rate 72 with some irregularities. DIAGNOSTIC STUDIES/LAB DATA: His potassium is 3.8, troponin was elevated at 0.16 yesterday, then repeat troponin last night was 0.11. EKG yesterday revealed what appeared to be atrial flutter with rapid ventricular response in the 140s. EKG today this morning revealed sinus rhythm , frequent APCs. Of note, he did have an echocardiogram performed on 02/27/18, which revealed normal EF of 55% to 60%, abnormal diastolic function to a normal grade 2, trace stenosis, mild MR, trace TR, mildly distended aorta compared to 11/13/17, his EF has returned to normal. Of note, the echocardiogram from 11/13/17, revealed an EF of 35% to 40% with mild to moderate MR. IMPRESSION: Mr. Marshall has a history of coronary artery disease, atrial arrhythmia status post ablation, now with recurrent atrial arrhythmias and elevated troponin. I did explain to him and his that options for treatment given recurrent atrial arrhythmias and symptomatic tachyarrhythmias, I did suggest an attempt at more aggressive rate control and lifestyle changes to decrease likelihood of arrhythmia. If he continues to have symptomatic arrhythmias, he may benefit from repeat of a consultation with Dr. Lobato for change in antiarrhythmic therapy or perhaps repeated ablation or perhaps AV adolfo ablation with a pacemaker to control symptoms. The elevated troponin may be due to small vessel disease and increased demand, but I did suggest a repeat evaluation for high grade ischemia. There are several concerns including his desire to continue alcohol and caffeine despite the increased risk of arrhythmia and to leave the hospital today to see his daughter before she leaves for his college. I did explain to him that there are potential interactions between these medications, unclear if they will be tolerated or efficacious. I also explained that it will take days to weeks to see whether he responds to the interventions. He understands those constraints. I also explained that decreasing caffeine and alcohol may decrease the likelihood of recurrent arrhythmias. PLAN/RECOMMENDATIONS: For the time being, we will recommend, 1. We will supplement his potassium and try to maintain over 4. 2. We will add diltiazem CD 120 mg a day to his regimen starting with the first dose now. 3. We will stop his IV diltiazem shortly thereafter. 4. He is to continue on Coreg 25 mg b.i.d. 5. He got a dose of digoxin 0.25 mg IV earlier today and will continue 0.125 mg a day. 6. He is to have a stress test to evaluate for ischemia. 7. Tentatively, we could consider discharge later today understanding he needs to check his heart rate, blood pressure and return if he has recurrent symptoms. 8. He will followup with Dr. Jason on Friday and I would suggest considering a repeat evaluation of his chemistries and dig level and his EKG. [id number]/[facility] #: [id number] addendum 03.07.18 I reviewed the stress test and echo findings with the patient prior to his discharge on 03.06.18 (see handwritten progress note). He remained in an atrial tachycardia or atypical flutter during the stress test with 2;1 avblock at rest and gradual increase in conduction and ventricular response to 160. There was an anterior defect on nuclear imaging. There was mildly reduced lv function , new c/t 02.27.18 which may represent tachycardia induced lv dysfuntion and /or ischemic LV dysfunction. Given his improvement in symptoms with rate control and his desire to seek further treatment and evaluation as an outpatient, he was discharged understanding the followin. he will need continued monitoring and adjustment of his medications 2. he will need to monitor bp and hr at home. 3. he will contine coreg and add diltiazem and digoxin 4. he understands the risk of tachy and carlyle arrhythmias including lifethreatening arrhythmias on tikosyn and accepts the risks including the potential for syncope and fatal arrhythmias. 5. He understands the potential of alcohol and caffeine to exacerbate his cardiomyopathy and arrhythmias. 6. he is to refrain from vigorous exertion including jogging and bicycling until reevaluated by Dr. Jason next week. 7.l left a message with Dr. Lobato's office to update him. He understands that further adjustment of his medications and the potential need for repeat ablation or even av adolfo ablation with a pacemaker may be necessary to definitively control his symptoms. 8. I explained that the reduced lv function and troponin elevations could be related to demand ischemia or progression of his CAD. He will see Dr. Jason and consider further evaluation for ischemic heart disease and may benefit from a cardiac cath in the future. 9. I suggested a repeat bmp and dig level next week to monitor his progress on the new regimen. PAVITHRA JOY
[2018-03-06] MEDS ORDERED: Atorvastatin* 40 MG TAB PO SCH (21:00)
--- NOTE | 2018-03-07 05:39 | DS ---
CC: Dr. Derek Villareal; Dr. Malvin Lobato; Dr. Dez Jason; Dr. Ramakrishna William * DISCHARGE SUMMARY: DATE OF ADMISSION: 03/06/18 DATE OF DISCHARGE: 03/06/18 ATTENDING PHYSICIAN: Dr. Ghanshyam Martinez* (dictated by JONATAN Gonzalez). PRIMARY CARE PROVIDER: Dr. Derek Villareal. OUTPATIENT MANAGER RESOURCE: Dr. Malvin Lobato. OUTPATIENT HISTORICAL MANUSCRIPTS CURATOR: Dr. Dez Jason. CONSULTING HISTORICAL MANUSCRIPTS CURATOR: Dr. Ramakrishna William. PRIMARY DISCHARGE DIAGNOSES: 1. Atrial flutter with rapid ventricular response. 2. Elevated troponin. 3. Tachycardia-induced cardiomyopathy. SECONDARY DISCHARGE DIAGNOSES: 1. Coronary artery disease. 2. History of maze procedure. 3. Psoriasis. 4. History of coronary artery bypass graft. STUDIES DONE WHILE IN THE HOSPITAL: Electrocardiogram from 03/06/18 at 7:30 this morning shows atrial bigeminy, early repolarization V1 through V4, T-wave inversion in V6 with slight ST segment depression, T-wave inversions in I and aVL, left ventricular hypertrophy, rate of 108, QTc of 500, no abnormalities. Repeat EKG from 03/06/18 read as frequent ectopy, atrial flutter with 2:1 block , resolution of T-wave inversion in V6, persistent T-wave inversion in I and aVL , rate of 81, QTc of 462, persistent left ventricular hypertrophy. Transthoracic echocardiogram from 03/06/18 read as moderate concentric left ventricular hypertrophy is observed. There is mildly decreased left ventricular systolic function. Estimated ejection fraction is 40% to 45%, closer to 45%. Relative hypokinesis of the septal segments and inferior apical segments. Left atrium is moderately to severely dilated. Right ventricle is moderately dilated. Right ventricular global systolic function is mildly to moderately reduced. Left atrial cavity is severely dilated. There is borderline aortic stenosis present. There is trace aortic regurgitation. There is mild mitral regurgitation. There is mild tricuspid regurgitation. There is mild dilatation of the ascending aorta and further decrease in EF from 02/27/18 from 55% to 60%. Nuclear medicine scan from 03/06/18 shows ejection fraction under stress 40%, wall motion demonstrates global hypokinesis, previous exam reversible change in the anterior apical cueva are not identified, ventriculomegaly with areas of persistent defect in the anteroseptal or anterior lateral wall which appears worse under rest on the stress images. ASSESSMENT: High risk. MEDICATIONS AT DISCHARGE: 1. Lipitor 40 mg p.o. daily. 2. Eliquis 5 mg p.o. b.i.d. 3. Lisinopril 10 mg p.o. daily. 4. Tikosyn 250 mcg p.o. b.i.d. 5. Triamcinolone 1 application topical q.48 hours. 6. Hydrocortisone cream 1 application topical daily as needed. 7. Betamethasone cream 0.5% topical each 48 hours as needed. 8. Claritin 10 mg p.o. q.p.m. 9. Aspirin 81 mg p.o. q.a.m. 10. Tylenol 650 mg p.o. q.6 hours as needed. 11. Carvedilol 25 mg p.o. b.i.d. 12. Digoxin 0.125 mg p.o. daily. 13. Diltiazem 125 mg p.o. daily. 14. Potassium chloride 10 mEq p.o. daily. HOSPITAL COURSE: This is a brief summary of the patient's presentation. For more details, please see his history and physical from Dr. Charlie Buck on 03/06/18 as well as the ED provider reports from Dr. Raamna Ashley and Dr. Gurinder Curtis on 03/05/18. The patient is a 62-year-old male with the past medical history significant for the above, who on 03/04/18 initially felt that he had palpitations and diaphoresis consistent with previous episodes of Aflutter. The patient recently has been under a quite a bit of stress at work and had been drinking up to 2 bottles of wine on the weekend and had recently begun drinking caffeine again. The patient spontaneously converted, by his reckoning, about 3 a.m. on 03/05/18 to sinus rhythm due to cessation of his palpitations and then the palpitation sensation returned in the morning of . The patient called [facility], who told him to be evaluated in [facility]. The patient had a troponin of 0.16 at that time and had while being observed in the emergency department converted from atrial flutter with rapid ventricular response to normal sinus rhythm after 120 mg dose of IV diltiazem. The patient signed out of the emergency department against medical advice after he was suggested to be admitted for observation as he had work deadlines that he needed to meet. The patient went home and returned to the emergency department on the evening of 03/05/18 due to recurrence of his palpitations with sweating. The patient was admitted to the hospital. The patient persisted in atrial flutter for most of the night and then converted to normal sinus rhythm with atrial bigeminy in the morning of 03/05/18. The patient in the emergency department was initially started on a diltiazem drip and had bradycardia down to 48 beats per minute, at which time the diltiazem drip was stopped with an increase in his heart rate back up to approximately 130. The patient's blood pressure was consistently elevated throughout his hospitalization with no hypotension. The patient was maintained on a Cardizem drip overnight. The patient in the morning continued to go in and out of atrial flutter with rates up to the 150s, particularly with activity. The patient was loaded with digoxin 0.25 mg twice. The patient was given metoprolol IV 5 mg once and was given his home dose of carvedilol at 25 mg b.i.d. The patient underwent an echocardiogram and a nuclear medicine stress test as above. The patient was insistent that he would not stay in the hospital because he wanted to spend time with his daughter while she was still in town. The patient's heart rate was around 80 to 100 at rest and the patient was entirely asymptomatic. On 05/14, the patient was generally found to be in atrial flutter with a 2:1 block throughout the day. On 03/06/18, the patient, however, converted to a 1:1 conduction during his nuclear medicine stress test and observed with heart rates up to 160 with full exertion. The patient was deemed to be on medically optimized therapy in consultation by Dr. Ramakrishna William as the patient had close followup with his telesales advisor, Dr. Dez Jason. The patient was continued on his anticoagulation. The patient had no laboratory abnormalities except for a slightly elevated white blood cell count. The patient had no other signs of infection including fevers or hypotension. The patient's elevated blood pressures, he related to being in the hospital as he felt that his blood pressure was always elevated while he was in the hospital. The patient's QTc was elevated and he had frequent ectopy on his telemetry monitoring, so his Tikosyn dose was unable to be increased. It was discussed with the patient that there were risks to him being discharged and he states that he understands the risks including worsening of his tachycardia-induced cardiomyopathy, AR, syncope, and he said that he understood these risks but would prefer to follow up outpatient with Dr. Jason. The patient was discharged on 03/06/18. PHYSICAL EXAM ON THE DAY OF DISCHARGE: General: The patient is a 62-year-old male who appears stated age, sitting comfortably in bed, in no acute distress. Vital Signs: At the time of evaluation, temperature 97.9, pulse rate 112, respiratory rate 20, oxygen saturation 99% on room air, and blood pressure 159/ 95. HEENT: Head normocephalic and atraumatic. Sclerae anicteric. No conjunctival injection. Nasal mucosa moist. Oral mucosa moist. No pharyngeal erythema, discharge, or exudate. Neck: Supple, nontender. No lymphadenopathy. No carotid bruits auscultated. No JVD. Cardiac: Rate of 80 beats occurring in couplets with decreased heart sounds on the second beat. No clicks, murmurs, gallops, or rubs. Pulses are 2+ in bilateral dorsalis pedis, posterior tibialis, and radial areas. Respiratory: Clear to auscultation bilaterally. No wheezes, rales, or rhonchi. Good air exchange bilaterally. Abdomen: Soft, nontender, nondistended. Bowel sounds present. Normoactive in all 4 quadrants. No hepatosplenomegaly. No abdominal bruits auscultated. No hepatojugular reflux. Genitourinary: No suprapubic or CVA tenderness. Skin: Clean, dry, and intact. No rash. Neuro: Cranial nerves II through XII intact. No focal deficits. Alert and oriented x3. Psychiatric: Pleasant and cooperative. LABORATORY DATA: On the day of discharge, white blood cell count 11.4, hemoglobin 15.4, platelet count 191. Sodium 139, potassium 3.8, chloride 107, carbon dioxide 26, anion gap 6, BUN 15, creatinine 0.8, glucose 117, calcium 9.1. Magnesium 1.9. DISCHARGE PLAN: The patient will be discharged to home. The patient has been instructed to avoid strenuous activity as this increases his heart rate and decrease the effectiveness of his diltiazem. The patient has been started on diltiazem 0.125 mg daily. The patient will be on carvedilol 25 mg b.i.d. and diltiazem 120 mg continuous dosing daily. The patient will follow up with his primary telesales advisor, Dr. Jason, on 03/11/18. The importance of this followup has been stressed with him and the possibility for outpatient cardiac catheterization and a continued need for optimizing of medical therapy for rate control if the patient is unable to be rhythm controlled on Tikosyn due to adverse events. 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 Jason. The patient should return to the hospital for chest pain, syncope, or other alarming symptoms. The patient should monitor his heart rate and blood pressure at home at least twice daily. The patient will be started on a potassium supplement. The patient should avoid strenuous activity as above and have a heart-healthy diet avoiding salt, caffeine, and alcohol. TIME SPENT: Approximately 60 minutes was spent on the discharge of this patient , 30 of which was spent [id number] with the patient obtaining history and physical and discussing treatment plan. JONATAN GONZALEZ [id number]/[facility] #: [id number]
== END 2018-03-06 16:45 | disposition home or self-care (01) ==
LOC: ED 20:55 → MEDTELE 03-06 02:41
PROVIDERS: ADMIT Hospitalist; ATTEND Student in an Organized Health Care Education/Training Program
DX: I48.92 Unspecified atrial flutter (principal); Z79.01 Long term (current) use of anticoagulants; R79.89 Other specified abnormal findings of blood chemistry; I42.8 Other cardiomyopathies; I25.10 Atherosclerotic heart disease of native coronary artery without angina pectoris; Z98.890 Other specified postprocedural states; L40.9 Psoriasis, unspecified; Z95.5 Presence of coronary angioplasty implant and graft
CPT/HCPCS: 36415; 78452; 80048; 83735; 84484; 85027; 93005; 93017; 93306; 96365; 99285; A9270-GY; A9502; G0378; J1160; J3490

== ENCOUNTER 2018-04-14 16:31 | Emergency (ER) | payer OTHER ==
--- NOTE | 2018-04-14 16:57 | ED ---
Neurological HPI - HPI Summary HPI Summary: Patient is a 63 y/o M w/ c/o tingling in fingers and toes, facial stiffness, and slurred speech onsetting a month ago. Patient's , who was present in the room, notes that patient's speech is slightly more slurred compared to his baseline. Slurred speech is noted to wax and wane, tingling is reported to be constant. PMHx of atrial flutter is reported in the room by patient. It is currently controlled to his knowledge. Patient reports calling his pin chaser , Dr. Jason, today who suggested he come to ED. Patient states that he recently started taking tikosyn. N/V/D, SOB, chest pain and CLAROS are denied. On triage, pain is denied, nothing is noted to aggravate/alleviate Sx. Home medications and allergies are reviewed. - History of Current Complaint Chief Complaint: EDNeurologicalDeficit Stated Complaint: TINGLING IN THE FINGERS/SLURRED SPEECH Time Seen by Provider: 04/14/18 16:46 Hx Obtained From: Patient Onset/Duration: Started weeks ago - a month ago, Still Present Timing: Constant - tingling in toes and fingers Current Severity: None - pain is denied Neurological Deficit Location: Facial - facial stiffness is reported by patient Pain Intensity: 0 Pain Scale Used: 0-10 Numeric - 0/10 Aggravating: Nothing Alleviating: Nothing Associated Signs and Symptoms: Positive: Impaired Speech - slurred speech intermittently. Negative: Headache, Nausea/Vomiting, Diarrhea, Chest Pain, Shortness of Breath - Additional Pertinent History Primary Care Physician: [id number] - Allergy/Home Medications Allergies/Adverse Reactions: Allergies Allergy/AdvReac Type Severity Reaction Status Date / Time No Known Allergies Allergy Verified 03/05/18 12:25 PMH/Surg Hx/FS Hx/Imm Hx Endocrine/Hematology History: Reports: Hx Anticoagulant Therapy - eliquis Denies: Hx Blood Transfusions, Hx Diabetes, Hx Anemia, Hx Unexplained Bleeding Cardiovascular History: Reports: Hx Congestive Heart Failure, Hx Coronary Artery Disease, Hx Hypercholesterolemia, Hx Hypertension, Other Cardiovascular Problems/Disorders - 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, MAZE procedure, atrial flutter Denies: Hx Aneurysm, Hx Angina, Hx Angioplasty, Hx Auto Implanted Cardiovert Defib, Hx Cardiac Arrest, Hx Cardiomegaly, Hx Congenital Heart Disease, Hx Deep Vein Thrombosis, Hx Embolism, Hx Hypotension, Hx Myocardial Infarction, Hx Pacemaker/ICD, Hx Peripheral Vascular Disease, Hx Rheumatic Fever, Hx Syncope, Hx Valvular Heart Disease Respiratory History: Reports: Hx Seasonal Allergies, Hx Sleep Apnea Denies: Hx Asthma, Hx Chronic Bronchitis, Hx Chronic Obstructive Pulmonary Disease (COPD), Hx Cystic Fibrosis, Hx Lung Cancer, Hx Pleural Effusion, Hx Pneumonia, Hx Pulmonary Edema, Hx Pulmonary Embolism, Other Respiratory Problems /Disorders GI History: Reports: Hx Jaundice Denies: Hx Cirrhosis, Hx Crohn's Disease, Hx Diverticulosis, Hx Gall Bladder Disease, Hx Gastroesophageal Reflux Disease, Hx Gastrointestinal Bleed, Hx Hiatal Hernia, Hx Irritable Bowel, Hx Obstructive Bowel, Hx Ileostomy, Hx Pyloric Stenosis, Hx Ulcer, Other GI Disorders History: Denies: Hx Dialysis Musculoskeletal History: Reports: Hx Bursitis, Hx Orthopedic Injury - wrist fracture, Other Musculoskeletal History - ACL repair Denies: Hx Arthritis, Hx Back Problems, Hx Congenital Bone Abnormalities, Hx Fibromyalgia, Hx Gout, Hx Osteoporosis, Hx Scoliosis, Hx Tendonitis Sensory History: Reports: Hx Contacts or Glasses - pt. wearing contacts Denies: Hx Cataracts, Hx Eye Injury, Hx Eye Prosthesis, Hx Glaucoma, Hx Legally Blind, Hx Macular Degeneration, Hx Vision Problem, Hx Deafness, Hx Hearing Aid, Hx Hearing Problem, Other Sensory Impairments Opthamlomology History: Reports: Hx Contacts or Glasses - pt. wearing contacts Denies: Hx Cataracts, Hx Eye Injury, Hx Eye Prosthesis, Hx Glaucoma, Hx Legally Blind, Hx Macular Degeneration, Hx Vision Problem, Other Sensory Impairments Neurological History: Denies: Hx Seizures, Hx Spinal Cord Injury, Hx Transient Ischemic Attacks ( TIA) Psychiatric History: Reports: Hx Anxiety Denies: Hx Attention Deficit Hyperactivity Disorder, Hx Autism, Hx Eating Disorder, Hx Oppositional [place] Disorder, Hx Depression, Hx Panic Disorder, Hx Inpatient Treatment, Hx Community Mental Health Tx, Hx Schizophrenia, Hx Bipolar Disorder, Hx Suicide Attempt, Hx of Violent Episodes Against Others, Other Psychiatric Issues/Disorders - Surgical History Surgery Procedure, Year, and Place: arthrocopic knee surgery 1989. CABG 2014. Saphenous vein graph OM1. ACL reair Hx Anesthesia Reactions: No Infectious Disease History: No Infectious Disease History: Reports: Hx Hepatitis - 35 yrs ago Denies: Hx Human Immunodeficiency Virus (HIV), Hx of Known/Suspected MRSA, Hx Shingles, Hx Tuberculosis, Hx Known/Suspected VRE, Hx Known/Suspected VRSA, History Other Infectious Disease, Traveled Outside the [place] in Last 30 Days - Family History Known Family History: Positive: Cardiac Disease - Social History Alcohol Use: Occasionally Alcohol Amount: 1 glass per day Substance Use Type: Reports: None Smoking Status (MU): Former Smoker Type: Cigarettes Review of Systems Negative: Chest Pain Negative: Shortness Of Breath Negative: Vomiting, Diarrhea, Nausea Neurological: Other - tingling in toes and fingers, slurred speech, facial stiffness Negative: Headache All Other Systems Reviewed And Are Negative: Yes Physical Exam - Summary Physical Exam Summary: VITAL SIGNS: Reviewed. GENERAL: Patient is a well-developed and nourished male who is lying comfortable in the stretcher. Patient is not in any acute respiratory distress. HEAD AND FACE: No signs of trauma. No ecchymosis, hematomas or skull depressions. No sinus tenderness. EYES: PERRLA, EOMI x 2, No injected conjunctiva, no nystagmus. No photophobia. EARS: Hearing grossly intact. Ear canals and tympanic membranes are within normal limits. MOUTH: Oropharynx within normal limits. NECK: Supple, trachea is midline, no adenopathy, no JVD, no carotid bruit, no c- spine tenderness, neck with full ROM. No meningeal signs, no Kernig's or brudzinskis signs. CHEST: Symmetric, no tenderness at palpation LUNGS: Clear to auscultation bilaterally. No wheezing or crackles. CVS: Regular rate and rhythm, S1 and S2 present, no murmurs or gallops appreciated. ABDOMEN: Soft, non-tender. No signs of distention. No rebound no guarding, and no masses palpated. Bowel sounds are normal. EXTREMITIES: FROM in all major joints, no edema, no cyanosis or clubbing. NEURO: Alert and oriented x 3. No acute neurological deficits. Speech is normal and follows commands. SKIN: Dry and warm GCS: 15 NIH: 0 Triage Information Reviewed: Yes Vital Signs On Initial Exam: Initial Vitals Temp Pulse Resp BP Pulse Ox 98.3 F 69 16 222/102 98 04/14/18 16:39 04/14/18 16:39 04/14/18 16:39 04/14/18 16:39 04/14/18 16:39 Vital Signs Reviewed: Yes Diagnostics - Vital Signs Vital Signs Temp Pulse Resp BP Pulse Ox 04/14/18 16:39 98.3 F 69 16 222/102 98 - Laboratory Result Diagrams: 04/14/18 17:13 04/14/18 17:13 Lab Statement: Any lab studies that have been ordered have been reviewed, and results considered in the medical decision making process. - CT ct brain CT Interpretation: No Acute Changes CT Interpretation Completed By: Radiologist - no acute intracranial pathology; this report was reviewed by ed physician. - EKG 1730 Cardiac Rate: NL - rate of 62 bpm EKG Rhythm: Sinus Rhythm EKG Interpretation: LVH EKG Comparison: No Significant Change - ekg is similar to one taken on 03/06/18 NIH Scale - NIH Scale Level of Consciousness: Alert/Keenly Responsive Ask Patient the Month and His/Her Age: Both Correct Ask Pt to Open/Close Eyes and Historical Site Guide/Release Non-Paretic Hand: Both Correctly Best Gaze (Only Horizontal Eye Movement): Normal Visual Field Testing: No Visual Loss Facial Paresis-Pt to Smile & Close Eyes or Grimace Symmetry: Normal/Symmetrical Motor Function - Right Arm: No Drift-Holds 10 Seconds Motor Function - Left Arm: No Drift-Holds 10 Seconds Motor Function - Right Leg: No Drift-Holds 10 Seconds Motor Function - Left Leg: No Drift-Holds 10 Seconds Limb Ataxia-Must be out of Proportion to Weakness Present: Absent Sensory (Use Pinprick to Test Arms/Legs/Trunk/Face): Normal Best Language (Describe Picture, Name Items): No Aphasia Dysarthria (Read Several Words): Normal Extinction and Inattention: No Abnormality Total Score: 0 Re-Evaluation - Re-Evaluation First Eval Re-Evaluation Time: 18:20 Change: Worse Comment: The patient seems to be hypertensive therefore hydralazine was ordered since the heart rate is only in the 60s. Patient refused IV and BP medications. He reports that he will be taking his own medications from home. However after further discussion the patient accepted the hydralazine. Course/Dx - Course Assessment/Plan: This patient is a 63-year-old male who presents to the emergency department with a chief complaint of having tingling sensation in the tip of the fingers and the tip of the toes. He also reports that he is having some slurred speech. These symptoms have been present for approximately one month. He discussed and his symptoms with Dr. Jason from cardiology and he requested for the patient to come to the emergency department for further workup and management. My physical exam shows no acute focal neurological deficits. The patient doesnt seem to have any slurred speech however the patient thinks that he is having slurred speech. Blood test results without any significant abnormality, glucose 107, TSH is normal. The patient seems to be hypertensive therefore I order for the patient hydralazine since the heart rate is only in the 60s. Patient refused IV and BP medications. He reports that he will be taking his own medications from home. However after further discussion the patient accepted the hydralazine. I discussed my findings and test results with and Dr. Doyle from neurology who will consult for this patient. Patient will be signed out to Dr. Douglas shift change pending on Dr. Kowalski consult - Diagnoses Provider Diagnoses: Paresthesia, B12 deficiency - Physician Notifications Discussed Care Of Patient With: Milton Doyle Time Discussed With Above Provider: 17:40 Instructed by Provider To: Other - 1739 - Patient's case was discussed with Dr. Doyle, he will come to evaluate patient. 1829 -- Dr. Doyle arrived in ED, will look over patient. Discharge - Sign-Out/Discharge Documenting (check all that apply): Sign-Out Patient Signing out patient TO: Jay Douglas Receiving patient FROM: Ramana Ashley - Discharge Plan Condition: Improved Disposition: HOME Prescriptions: Cyanocobalamin INJ * [Vitamin B12 INJ *] 1,000 mcg IM DAILY #4 vial Patient Education Materials: Paresthesia (ED), Vitamin B12 Deficiency (ED) Referrals: Milton Doyle MD [Medical Doctor] - Derek Villareal MD [Primary Care Provider] - Additional Instructions: Call first thing In the morning to follow-up with primary care physician. Have your doctor recheck your blood pressure this week. They can provide your B12 injections daily for the next 4 days -- then 1 per week for 4 weeks then Neurology will manage. Return if worse, new symptoms or other concerns. - Billing Disposition and Condition Condition: IMPROVED Disposition: Home - Attestation Statements Document Initiated by Scribe: Yes Documenting Scribe: Michael Prasad Provider For Whom Viviennee is Documenting (Include Credential): Ramana Ashley MD Scribe Attestation: I, Michael Prasad, scribed for Ramana Ashley MD on 04/17/18 at 1554. Scribe Documentation Reviewed: Yes Provider Attestation: The documentation as recorded by the scribeMichael accurately reflects the service I personally performed and the decisions made by me, Ramana Ashley MD
[2018-04-14 17:25] LABS: ABS Basophils 0.1 10^3/ul (0-0.2); ABS Eosinophils 0.4 10^3/ul (0-0.6); ABS Lymphocytes 0.9 10^3/ul (1.0-4.8); ABS Monocytes 0.9 10^3/ul (0-0.8); ABS Neutrophils 6.3 10^3/ul (1.5-7.7); ABS Nucleated RBC 0 10^3/ul; Eosinophil % 4.6 % (0-6); Hematocrit 42 % (42-52); Hemoglobin 14.2 g/dl (14.0-18.0); Lymphocyte % 10.8 % (25-47); Mean Corpuscular HGB Conc 34 g/dl (31-36); Mean Corpuscular Hemoglobin 32 pg (27-31); Mean Corpuscular Volume 94 fL (80-94); Mean Platelet Volume 8.3 um3 (7.4-10.4); Nucleated Red Blood Cells % 0; Platelet Count 169 10^3/ul (150-450); Red Blood Count 4.48 10^6/ul (4.00-5.40); Red Cell Distribution Width 14 % (10.5-15); White Blood Count 8.6 10^3/ul (3.5-10.8)
[2018-04-14 17:37] LABS: INR 1.23 (0.77-1.02)
--- NOTE | 2018-04-14 17:41 | RAD ---
HISTORY: numbness, slurred speech COMPARISONS: None TECHNIQUE: Multiple contiguous axial CT scans were obtained of the head without intravenous contrast. FINDINGS: HEMORRHAGE/INFARCT: There is no hemorrhage or acute infarct. MASSES/SHIFT: There is no mass or shift. EXTRA-AXIAL SPACES: There are no extra-axial fluid collections. SULCI AND VENTRICLES: The sulci and ventricles are normal in size and position for the patient's stated age. CEREBRUM: There are no focal parenchymal abnormalities. BRAINSTEM: There are no focal parenchymal abnormalities. CEREBELLUM: There are no focal parenchymal abnormalities. VESSELS: The vessels are grossly normal. PARANASAL SINUSES: The paranasal sinuses are clear. ORBITS: The orbits are unremarkable. BONES AND SOFT TISSUE: No bone or soft tissue abnormalities are noted. OTHER: None IMPRESSION: NO ACUTE INTRACRANIAL PATHOLOGY.
[2018-04-14] MEDS ORDERED: hydrALAZINE IV* 20 MG/ML VIAL IV SLOW PU ONE (17:59)
[2018-04-14 19:45] VITALS: BP 178/112
[2018-04-14] MEDS ORDERED: Cyanocobalamin INJ * 1,000 MCG/ML VIAL 1 ML VIAL IM ONE (19:49)
--- NOTE | 2018-04-14 19:58 | ED ---
Progress - Progress Note Progress Note: Receiving sign out from Dr. Ashley. Patient was seen by neurology who started the patient on B12 injections here and will continue these for the next 4 days. After that they will be weekly for 1 month. He will manage outpatient after that. He shows given prescription for 4 days of B12 injections which she wishes to self administer. Also with his primary care physician as well. Re-Evaluation - Re-Evaluation First Eval Re-Evaluation Time: 18:20 Change: Worse Comment: The patient seems to be hypertensive therefore hydralazine was ordered since the heart rate is only in the 60s. Patient refused IV and BP medications. He reports that he will be taking his own medications from home. However after further discussion the patient accepted the hydralazine. Course/Dx - Diagnoses Provider Diagnoses: Paresthesia, B12 deficiency - Provider Notifications Discussed Care Of Patient With: Milton Doyle Time Discussed With Above Provider: 19:51 Instructed by Provider To: Other - Dr. Doyle said to discharge pt. Discharge - Sign-Out/Discharge Documenting (check all that apply): Patient Departure - Discharge, Receiving Sign-Out Receiving patient FROM: Ramana Ashley - Discharge Plan Condition: Improved Disposition: HOME Prescriptions: Cyanocobalamin INJ * [Vitamin B12 INJ *] 1,000 mcg IM DAILY #4 vial Patient Education Materials: Paresthesia (ED), Vitamin B12 Deficiency (ED) Referrals: Milton Doyle MD [Medical Doctor] - Derek Villareal MD [Primary Care Provider] - Additional Instructions: Call first thing In the morning to follow-up with primary care physician. Have your doctor recheck your blood pressure this week. They can provide your B12 injections daily for the next 4 days -- then 1 per week for 4 weeks then Neurology will manage. Return if worse, new symptoms or other concerns. - Billing Disposition and Condition Condition: IMPROVED Disposition: Home - Attestation Statements Document Initiated by Martín: Yes Documenting Scribe: Selma Drew Provider For Whom Martín is Documenting (Include Credential): Jay Douglas MD Scribe Attestation: [place]ma [place] scribed for Jay Douglas MD on 04/14/18 at 2057. Scribe Documentation Reviewed: Yes Provider Attestation: The documentation as recorded by the Selma doan accurately reflects the service I personally performed and the decisions made by me, Jay Douglas MD
[2018-04-14] MEDS ORDERED: Thiamine IV* 100 MG/ML 2 ML VIAL ONE (20:01)
--- NOTE | 2018-04-15 01:48 | CONS ---
CONSULTATION NOTE: DATE OF CONSULT: 04/14/18 - EMERGENCY DEPT REASON FOR CONSULT: Intermittent slurred speech and tingling in the hands. CONSULTING PROVIDER: Dr. Ashley. CHIEF COMPLAINT: Tingling in the hands. 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 His who is at the bedside stated that she noticed the slurred speech a little more than 10 days ago. He has intermittent episode of heavy, however, understandable slurred speech. It was felt that he may have had slurred speech due to Tikosyn use. The patient searched this information on the internet and found that there is maybe a 0.05% of patient that receive Tikosyn can have slurred speech. In addition, he has noticed over the last few weeks that he has a tiny tingling sensation in the finger tips and toes. This also fluctuates. He does not have the symptoms simultaneously and he may have slurred speech and not have any tingling sensation. He has noticed gait imbalance for over 6 months now. He still exercises a few times a week and he rode his bike for about 40 minutes last Friday. He denied any focal weakness or paresthesia. He denied any facial asymmetry. He denied any visual disturbance. He had a CT of the head in the ED that showed no evidence of acute intracranial pathology. His blood pressure is significantly elevated while he is in the ED, but he stated that this typically occurs when he is at a doctor's office or in the hospital. He checks his blood pressure at home and it is usually normal. He was treated with hydralazine for his blood pressure and it seemed to partially respond. The patient again reiterated that he is not concerned about his blood pressure being elevated in the 200s. The patient eats a regular diet, but over the last 6 months he has been alternating his diet given that his recommended low red meat diet. His memory is also not the same as he used to be. PAST MEDICAL HISTORY: Coronary artery disease with stent placement, triple bypass in 2014, atrial fibrillation status post ablation in November 2017 who is on Tikosyn and Eliquis. Psoriasis. No ACL in the left knee. ALLERGIES: Seasonal allergies. 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 He denied any tobacco use. He does drink 2 to 3 beers on Friday night and drinks 2 bottles of wine on the weekend. He has been doing this for 40 years. He denied any drug use. FAMILY HISTORY: His uncle may have had a stroke, but there is no direct family history of stroke or seizures. MEDICATIONS: 1. Atorvastatin 40 mg daily. 2. Eliquis 5 mg p.o. twice daily. 3. Lisinopril 10 mg daily. 4. Tikosyn 250 mcg twice daily. 5. Hydrocortisone cream. 6. Triamcinolone cream. 7. Betamethasone cream. 8. Loratadine. 9. Aspirin 81 mg daily. 10. Acetaminophen 650 mg p.o. every 6 hours as needed. 11. Coreg 25 mg p.o. twice daily. 12. Digoxin 0.125 mg p.o. daily. 13. Diltiazem 120 mg p.o. daily. 14. Potassium 10 mEq. REVIEW OF SYSTEMS: A 14-point review of systems was obtained. Otherwise negative except for what is mentioned in the HPI. PHYSICAL EXAMINATION: Vitals: Temperature 98.3, pulse rate of 70, respiratory rate of 16, oxygen saturation 97, blood pressure of 178/112. General: Well- nourished, well-developed man in no acute distress. He is alert and cooperative. He appears stated age. Head is normocephalic without obvious abnormality. Eyes: Conjunctivae/corneas are clear. Neck is supple and symmetrical. No carotid bruit. Lungs are clear to auscultation bilaterally, nonlabored breathing. Cardiovascular: Regular rhythm with normal S1, S2. Extremities: Normal range of motion with no cyanosis. Skin: No skin lesions or laceration. Psych: Affect is flat and normal mood. Neurological Examination: Mental status; awake and alert, oriented to person, place and time and general circumstance. Speech and language including expression, naming, repetition and comprehension were assessed and found to be normal. The patient does not have any evidence of slurred speech, although his spouse states that he may be slightly slurring his words currently. This was not detected on examination. Cranial nerves: Normal confrontation to testing bilaterally. Pupils in mid range and reactive to light. Normal consensual response. Extraocular muscles are intact. No ptosis. Sensation is intact on the forehead, cheeks, and jaw region bilaterally. No facial asymmetry. No facial droop. He is able to hear throughout the history process. Symmetrical palatal elevation. Normal strength against resistance. Tongue is symmetrical and midline with no atrophy or fasciculation. Motor Examination: No abnormal movements or no pronator drift. Normal Bulk and tone throughout. No fasciculations. Neck extension is 5. Shoulder range of motion is full. Shoulder abduction, elbow flexion and extension, wrist flexion/extension, finger flexion and extension, hip flexion, abduction, knee flexion, extension, ankle dorsiflexion and plantar flexion are all 5/5 throughout. Reflexes: Right/left. Brachioradialis 2/2, biceps 2/2, triceps 2/2, patella 3/3, ankle 0/ankle plantar downgoing toes bilaterally. Sensation is reduced at the great toes to pinprick at the distal toes on pinprick sensation, demarcated at the mid tarsal region bilaterally. Abnormal vibratory sensation measuring 4 seconds on the right, 5 seconds on the left. Intact proprioception on the greater toes. Romberg slight lean towards the left side, but no falls. Coordination: Normal [id number] and rapid alternative movement. Gait: Narrow-based, normal stance and gait. LABORATORY/IMAGING AND OTHER DIAGNOSTIC TESTING: CT head was reported in the HPI. Laboratory data, the patient does have vitamin B12 of 167. TSH is 0.87. WBC of 8.6, hemoglobin of 14.2, hematocrit of 42, platelet count of 169. INR is 1.23. Sodium 139. Potassium 4.0, chloride 107, carbon dioxide 77. BUN of 21 , creatinine of 0.9. Serum alcohol less than 10. 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 I suspect the patient has symptomatic vitamin B12 deficiency. Given the findings of neuropathy on examination, it is unlikely that he has any evidence of subacute combined degeneration given that the patient does not have any weakness. I do not think that this is a stroke given that the patient is on anticoagulation therapy and currently has no lateralizing neurological deficits. However, I am extremely concerned about the patient's blood pressure and mentioned that he should be further evaluated and treat the BP before he leaves the hospital. The patient declined any concerns about his blood pressure and stated that this is white coat hypertension and he usually checks his blood pressure at home, which is always within normal range. 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 1. Symptomatic vitamin B12 deficiency. 2. Hypertensive urgency. 3. History of atrial fibrillation, on anticoagulation therapy with Eliquis and antiarrhythmic agents on Tikosyn. 4. Psoriasis. RECOMMENDATION: I recommend starting the patient on vitamin B12, cyanocobalamin 1000 micrograms injection daily starting today and continuing 4 more injections daily. Thereafter he should have cyanocobalamin 1000 micrograms injection weekly for 4 weeks. Thereafter, he can arrange with his outpatient primary care doctor or once he follows up with Neurology to have injections done on either on a monthly basis. I did recommend he starts oral cyanocobalamin supplementation in addition to the IM injections. However, given the psoriasis, I am concerned that the patient may have an autoimmune condition such as pernicious anemia, which will prevent him from absorbing the vitamin B12 oral supplementation. If the tingling sensation, slurred speech, or the gait imbalance do not improve , then the patient should undergo further evaluation to rule out any other secondary causes. Other differential diagnosis may include an intracranial process such as small embolic phenomenon or cervical spine disease. I doubt he has any of these diagnosis given that we do have a source that can explain his constellation of symptoms. The patient is reassured and agrees that this may be the problem. He had agreed to come back to the ER if he has any new neurological deficits such as facial weakness, focal weakness, or impairment in cognition. Defer treatment for hypertension to the primary team/ER physician. I urged the patient to monitor his blood pressure multiple times during the day to make sure his blood pressure is not elevated since he is on both anticoagulation and antiplatelet therapy and he is at extremely high risk for developing intracranial hemorrhage. The patient verbalized understanding and reassured me that his blood pressure is not this high usually once he is at home. TIME SPENT: I spent a total of 70 minutes, greater than 50% of that was spent directly reviewing the medical chart, obtaining history, examining the patient, education and counseling, and discussing the treatment plan as mentioned above. I discussed this case in detail with Dr. Douglas who agreed with the above recommendation. [id number]/[facility] #: [id number] MTDD
== END 2018-04-14 20:18 | disposition home or self-care (01) ==
LOC: ED 16:31
DX: R20.2 Paresthesia of skin (principal); R47.81 Slurred speech; I10 Essential (primary) hypertension; Z87.891 Personal history of nicotine dependence
CPT/HCPCS: 36415; 70450; 80053; 80061; 80320; 82607; 83036; 83605; 84443; 84484; 85025; 85610; 93005; 96372; 96374; 99283; G0480; J0360; J3411; J3420

== ENCOUNTER 2023-05-06 05:38 | Observation (INO) ==
[~2023-05-06 05:38] MED LIST: Buffered Lidocaine 1% SYRIN 1 ml INTRADERM ONE; HYDROmorphone 1 MG/1 ML SYRINGE IV PRN; Lactated Ringers 1000 ml BAG 1,000 ML IV SCH; Naloxone 0.4 mg VIAL 0.4 mg/ml 1 ml VIAL IV PRN; Ondansetron 4 mg VIAL 2 MG/ML 2 ml VIAL IV PRN; fentaNYL 100 mcg/2 ml 50 MCG/ML VIAL IV PRN
[2023-05-06] MEDS ORDERED: ceFAZolin 2 GM in NS PREMIX 2 GM/100 ML BAG IVPB ONE (05:48)
[2023-05-06 06:23] LABS: Rapid COVID-19 Molecular Undetected (Undetected)
[2023-05-06] MEDS ORDERED: fentaNYL 100 mcg/2 ml 50 MCG/ML VIAL ONE (06:40)
[2023-05-06] MEDS ORDERED: Propofol 10 MG/ML 20 ML BTL ONE (06:40)
[2023-05-06] MEDS ORDERED: Midazolam 2 mg/2 ml VIAL 1 mg/ml 2 ml VIAL (2 mg) ONE (06:40)
[2023-05-06] MEDS ORDERED: Lidocaine 2% PF 5 ML VIAL ONE (06:40)
[2023-05-06] MEDS ORDERED: Phenylephrine IV 10 MG/ML 1 ml VIAL ONE (06:40)
[2023-05-06] MEDS ORDERED: Bupivacaine 0.5% PF 10 ML SDV VIAL INJ ONE (06:47)
[2023-05-06] MEDS ORDERED: ROPIVACAINE 5 MG/ML 30 ML BTL (0.5%) ONE (07:06)
[2023-05-06] MEDS ORDERED: Ropivacaine 5 MG/ML 20 ML VIAL 0.5% (100 MG) ONE (07:12)
[2023-05-06] MEDS ORDERED: Lidocaine 1% MPF 5 ML VIAL ONE (07:12)
[2023-05-06] MEDS ORDERED: Ondansetron 4 mg VIAL 2 MG/ML 2 ml VIAL ONE (08:07)
[2023-05-06] MEDS ORDERED: Dexamethasone IV 4 MG/ML VIAL 1 ml VIAL ONE (08:07)
[2023-05-06] MEDS ORDERED: Magnesium Hydroxide LIQ 30 ML UDC PO PRN (08:11)
[2023-05-06] MEDS ORDERED: Morphine 2 MG/ML SYRINGE IV PRN (08:11)
[2023-05-06] MEDS ORDERED: Ondansetron ODT 4 mg TAB 4 MG TAB PO PRN (08:11)
[2023-05-06] MEDS ORDERED: Lactulose 30 ml UDC PO PRN (08:11)
[2023-05-06] MEDS ORDERED: Ondansetron 4 mg VIAL 2 MG/ML 2 ml VIAL IV PRN (08:11)
[2023-05-06] MEDS ORDERED: Tranexamic Acid 1,000 MG/10 ML SDV ONE (08:52)
[2023-05-06] MEDS ORDERED: Fluticasone NASAL SPRAY 50MCG 16 gm SPRAY BTL INTRANASAL PRN (12:40)
[2023-05-06] MEDS: Lactated Ringers 1000 ml BAG 1,000 ML IV SCH ×2 (13:13→23:36)
[2023-05-06] MEDS: Vitamin THERAPEUTIC TAB PO SCH (15:20)
[2023-05-06] MEDS: Magnesium Hydroxide LIQ 30 ML UDC PO SCH ×2 (15:20→22:07)
[2023-05-06] MEDS: ceFAZolin 1 GM ADVAN 1 GM in NS 0.9% 50 ML 50 ML IVPB SCH ×2 (16:30→23:41)
[2023-05-06 16:50] LABS: HIV 4th Generation Nonreactive (Nonreactive)
[2023-05-06 16:54] LABS: Hepatitis B Surface Antigen Nonreactive (Nonreactive)
[2023-05-06 17:11] LABS: Hepatitis C Antibody Negative (Negative)
[2023-05-06] MEDS ORDERED: ATORVASTATIN 40 MG PO SCH (21:00)
[2023-05-06] MEDS: CARVEDILOL 25 MG PO SCH (22:04)
[2023-05-07 06:54] LABS: Hematocrit 32.7 % (38-53); Hemoglobin 11.4 g/dL (13.2-16.3); Mean Platelet Volume 7.9 fL (7.5-11.2); Platelet Count 172 10^3/uL (150-450)
[2023-05-07 07:16] LABS: Calcium 8.4 mg/dL (8.6-10.3); Creatinine, Serum 1.07 mg/dL (0.67-1.17); Potassium 4.5 mmol/L (3.5-5.0); eGFR CKD-EPI 75.1 (>60)
[2023-05-07] MEDS: ceFAZolin 1 GM ADVAN 1 GM in NS 0.9% 50 ML 50 ML IVPB SCH (08:08)
[2023-05-07] MEDS: Vitamin THERAPEUTIC TAB PO SCH (08:11)
[2023-05-07] MEDS: CARVEDILOL 25 MG PO SCH (08:11)
[2023-05-07] MEDS ORDERED: Cholecalciferol (VIT D3) 1,000 unit TAB PO SCH (09:00)
[2023-05-07] MEDS: Magnesium Hydroxide LIQ 30 ML UDC PO SCH (09:29)
[2023-05-07 11:00] VITALS: BP 122/72
== END 2023-05-07 11:40 | disposition home or self-care (01) ==
LOC: OR 05:38 → SSU 05:38
PROVIDERS: ADMIT Orthopaedic Surgery Adult Reconstructive Orthopaedic Surgery; ATTEND Orthopaedic Surgery Adult Reconstructive Orthopaedic Surgery